=== PATIENT | male | born 1945 | race Caucasian/White ===

== ENCOUNTER 2016-12-18 08:36 | Emergency (ER) | payer OTHER ==
--- NOTE | 2016-12-18 08:52 | EDPHY ---
H & P Time Seen by Provider: 12/18/16 08:48 HPI/ROS: CHIEF COMPLAINT: Joint pain HISTORY OF PRESENT ILLNESS: This patient is a 71-year-old male on oral chemotherapy and Lupron injections for stage IV prostate cancer who presents to the Emergency Department complaining of joint pain and swelling to both feet and his right hand beginning one week prior to arrival and gradually worsening over time. His pain first presented to the toes of both feet and has since spread to the dorsum of his feet and both ankles. Most recently, he has developed pain and swelling over the metacarpals of his right hand. His pain has not been alleviated with use of Ibuprofen or Tylenol. He denies fever, chills, malaise, or additional complaints. He does have a remote history of gout and reports that today's pain and swelling is more severe than his prior episode. He takes one Lupron injection every six months and just had his most recent injection two weeks prior to arrival. No recent medication changes. REVIEW OF SYSTEMS: Constitutional: No fever, no chills Eyes: No visual changes ENT: No sore throat Respiratory: No cough, no shortness of breath Cardiac: No chest pain Gastrointestinal: No nausea, no vomiting, no abdominal pain Genitourinary: No hematuria, no dysuria Musculoskeletal: As in HPI Skin: No rash Neurological: No headache, no numbness, no weakness Psychiatric: No depression Past Medical/Surgical History: Prostate cancer, CAD with history of CABG, pedal edema, left greater than right Social History: Non-smoker. Family at bedside. Smoking Status: Never smoked Physical Exam: General Appearance: Alert, no distress Eyes: Pupils equal and round, no conjunctival pallor or injection ENT, Mouth: Mucous membranes moist Neck: Normal inspection Respiratory: Lungs are clear to auscultation Cardiovascular: Regular rate and rhythm Gastrointestinal: Abdomen is soft and non-tender Neurological: A&O, nonfocal Skin: Warm and dry, no rash Extremities: Bilateral pedal edema at level of ankles, left greater than right. Erythema over left first toe IP joint, no pain with ROM. Pain with ROM of both ankles. No calf tenderness. Psychiatric: Mood and affect normal Constitutional: Initial Vital Signs Temperature (C) 37.1 C 12/18/16 08:42 Heart Rate 82 12/18/16 08:42 Respiratory Rate 17 12/18/16 08:42 Blood Pressure 103/66 12/18/16 08:42 O2 Sat (%) 92 12/18/16 08:42 O2 Delivery Mode Room Air Allergies/Adverse Reactions: codeine [Codeine] Allergy (Severe, Verified 12/18/16 08:39) Unknown tazobactam sodium [From Zosyn] Allergy (Severe, Verified 12/18/16 08:39) piperacillin sodium [From Zosyn] Allergy (Unknown, Verified 12/18/16 08:39) pseudoephedrine HCl [From Sudafed] Allergy (Verified 12/18/16 08:39) ? triprolidine HCl [From Actifed] Allergy (Verified 12/18/16 08:39) ? Home Medications: Medication Instructions Recorded Furosemide [Lasix 80 MG (RX)] 120 mg PO DAILY 11/21/11 Valsartan/Hydrochlorothiazide 1.5 each PO DAILY 11/21/11 [Diovan Hct 160-25 mg Tablet] Carvedilol 12/18/16 Clindamycin HCl [Clindamycin] 300 mg PO TID #30 cap 12/18/16 LEVETIRACETAM 12/18/16 Metolazone 12/18/16 Spironolactone 12/18/16 Xtandi 12/18/16 Medical Decision Making - Diagnostics Imaging Results: Imaging Impressions Ankle X-Ray 12/18/16 09:17 Impression: No evidence for acute osseous abnormality. Chronic findings, as above. Ankle X-Ray 12/18/16 09:18 Impression: No evidence for acute osseous abnormality. Mild soft tissue swelling left ankle. Chronic findings, as above. Wrist X-Ray 12/18/16 09:18 Impression: No evidence for acute osseous abnormality. ED Course/Re-evaluation: 71-year-old male with stage IV prostate cancer and remote history of gout presents with complaint of worsening joint pain localized to his toes bilaterally, ankles bilaterally, and dorsal aspect of right hand. He denies subjective fever and is afebrile at time of presentation. On exam, there is erythema and swelling to the IP joint of the first toe of the left foot but no pain with ROM. Ankles and additional joints to both feet are not erythematous or swollen. He has bilateral pedal edema but states that this is at baseline for him. His right hand is normal in appearance. Will proceed with labs and x- rays of both feet and right hand. The patient declines arthrocentesis at this time. Doubt DVT, given no calf sx. Query metastatic dx, given bone scan from 06/17. Last DEXA scan in 06/2016 reviewed; this did show increased activity around ankles and MTP joints. The patient is scheduled for his next DEXA scan on of this week. X-rays reviewed by me are normal. Labs reviewed. Patient is anemic at baseline. WBC is slightly elevated at 10.26. Unclear etiology of sx, gout vs infection vs metastatic disease. Given pt declines arthrocentesis, I will not be able to dx etiology. Pt understands and accepts risk. I discussed imaging and lab results with the patient. He declines additional workup at this time. His family at bedside are willing to care for him at home; he declines hospital admission. He will be started on a course of Clindamycin for possible infection. He agrees to proceed with the DEXA scan and follow-up this week with his regular physician for workup as an outpatient. He will be given customary return precautions and discharged home in good condition. Differential Diagnosis: includes though not limited to gout, infection, tumor, fx, sprain - Data Points Laboratory Results: Laboratory Results 12/18/16 09:50 12/18/16 09:50 WBC 10.26 10^3/uL H 10^3/uL (3.80-9.50) RBC 3.68 10^6/uL L 10^6/uL (4.40-6.38) Hgb 11.0 g/dL L g/dL (13.7-17.5) Hct 32.2 % L % (40.0-51.0) MCV 87.5 fL fL (81.5-99.8) MCH 29.9 pg pg (27.9-34.1) MCHC 34.2 g/dL g/dL (32.4-36.7) RDW 12.7 % % (11.5-15.2) Plt Count 192 10^3/uL 10^3/uL (150-400) MPV 10.9 fL fL (8.7-11.7) Neut % (Auto) 85.1 % H % (39.3-74.2) Lymph % (Auto) 8.1 % L % (15.0-45.0) [place] % (Auto) 5.8 % % (4.5-13.0) Eos % (Auto) 0.0 % L % (0.6-7.6) Baso % (Auto) 0.1 % L % (0.3-1.7) Nucleat RBC Rel Count 0.0 % % (0.0-0.2) Absolute Neuts (auto) 8.73 10^3/uL H 10^3/uL (1.70-6.50) Absolute Lymphs (auto) 0.83 10^3/uL L 10^3/uL (1.00-3.00) Absolute Monos (auto) 0.60 10^3/uL 10^3/uL (0.30-0.80) Absolute Eos (auto) 0.00 10^3/uL L 10^3/uL (0.03-0.40) Absolute Basos (auto) 0.01 10^3/uL L 10^3/uL (0.02-0.10) Absolute Nucleated RBC 0.00 10^3/uL 10^3/uL (0-0.01) Immature Gran % 0.9 % % (0.0-1.1) Immature Gran # 0.09 10^3/uL 10^3/uL (0.00-0.10) Departure - Departure Disposition: Home, Routine, Self-Care Clinical Impression: Joint pain Qualifiers: Joint pain location: foot Laterality: bilateral Qualified Code(s): M79.671 - Pain in right foot Condition: Good Instructions: Arthralgia (ED), Swollen Joint (ED) Additional Instructions: 1. Follow-up with your regular provider as we discussed as soon as possible this week. Keep your appointment for your next DEXA scan. 2. Take 600mg Ibuprofen every 6 hours as needed for pain and swelling. 3. Take the full course of Clindamycin as prescribed. 4. Return to the Emergency Department for increased pain or swelling, fever or chills, or for other serious concerns. Referrals: Justus Iqbal MD [Primary Care Provider] - As per Instructions Prescriptions: Clindamycin HCl [Clindamycin] 300 mg PO TID #30 cap Report Scribed for: Casandra Sheets Report Scribed by: Niurka Dean Date of Report: 12/18/16 Time of Report: 08:50 Physician Review and Approval Statement: 12/18/16 08:50 Portions of this note were transcribed by a senior medical billing specialist. I personally performed a history, physical exam, medical decision making, and confirmed accuracy of information the transcribed note.
[2016-12-18 10:00] LABS: % IMMATURE GRANULYOCYTES 0.9 % (0.0-1.1); ABSOLUTE IMMATURE GRANULOCYTES 0.09 10^3/uL (0.00-0.10); ADD DIFF? NO; ADD MORPH? NO; ADD SCAN? NO; ATYPICAL LYMPHOCYTE FLAG 0 (0-99); FRAGMENT RBC FLAG 0 (0-99); HEMATOCRIT 32.2 % (40.0-51.0); LEFT SHIFT FLG 0 (0-99); LIPEMIA HEMOLYSIS FLAG 90 (0-99); MEAN CELL HEMOGLOBIN 29.9 pg (27.9-34.1); MEAN CELL HEMOGLOBIN CONCENTR. 34.2 g/dL (32.4-36.7); MEAN CELL VOLUME 87.5 fL (81.5-99.8); MEAN PLATELET VOLUME 10.9 fL (8.7-11.7); PLATELET CLUMPS FLAG 10 (0-99); PLATELET COUNT 192 10^3/uL (150-400); RED BLOOD CELL COUNT 3.68 10^6/uL (4.40-6.38); RED CELL DISTRIBUTION WIDTH 12.7 % (11.5-15.2)
[2016-12-18 11:13] VITALS: BP 134/67; PULSE 92; RESP 18; TEMP 98.4; O2SAT 94
== END 2016-12-18 11:13 | disposition home or self-care (01) ==
DX: M79.671 Pain in right foot (principal); I25.810 Atherosclerosis of coronary artery bypass graft(s) without angina pectoris; Z85.3 Personal history of malignant neoplasm of breast

== ENCOUNTER → 2016-12-22 | Outpatient (CLI) | payer OTHER | LOC: FIMAGING 13:24 | PROVIDERS: ATTEND Internal Medicine Hematology & Oncology | DX: Z13.820 Encounter for screening for osteoporosis (principal) ==

== ENCOUNTER 2016-12-25 09:38 | Emergency (ER) | payer OTHER ==
[2016-12-25 09:47] VITALS: BP 128/88; PULSE 71; RESP 18; TEMP 97.7; O2SAT 95
--- NOTE | 2016-12-25 10:07 | EDPHY ---
H & P Stated Complaint: rash to back? allergic reaction to clindamycin Time Seen by Provider: 12/25/16 09:51 HPI/ROS: Chief Complaint: Skin rash HPI: 71-year-old male was seen a week ago with bilateral joint pain and diagnosed with once but a possible early infection. Patient was started on clindamycin for this. Three days later he started developing a rash on his back. It has since spread to his entire back and to his front. It was initially patchy but is now more confluent per his spouse. He has been taking calamine lotion and topical Benadryl ointment without relief. He did take an oral Benadryl with a little bit of relief yesterday. No fevers or chills. He states that his joint pain has since completely resolved. No chest pain shortness of breath. No nausea or vomiting. He has since discontinued clindamycin. ROS: 10 point Review of Systems is negative except as noted in the HPI. PMH: Stage IV prostate cancer Social History: No smoking, no alcohol, no recreational drug use Family History: non-contributory Physical Exam: Gen: Awake, Alert, No Distress HEENT: Nose: no rhinorrhea Eyes: PERRLA, EOMI Mouth: Moist mucosa Neck: Supple, no JVD Chest: nontender, lungs clear to auscultation, diffuse maculopapular rash which is blanching, not warm to touch Heart: S1, S2 normal, no murmur Abd: Soft, non-tender, no guarding Back: Diffuse maculopapular rash which is blanching, not warm to touch, no midline tenderness Ext: no edema, non-tender Skin: Per chest and back exam Neuro: CN II-XII intact, Sensation grossly intact, Strength 5/5 in bilateral upper and lower extremities - Personal History Current Tetanus/Diphtheria Vaccine: Yes Tetanus Vaccine Date: 2007 - Medical/Surgical History Hx Asthma: No Hx Chronic Respiratory Disease: No Hx Diabetes: No Hx Cardiac Disease: Yes Hx Renal Disease: No Hx Cirrhosis: No Hx Alcoholism: No Hx HIV/AIDS: No Hx Splenectomy or Spleen Trauma: No Other PMH: prostate cancer/cardiac disease - Social History Smoking Status: Never smoked Constitutional: Initial Vital Signs Temperature (C) 36.5 C 12/25/16 09:44 Heart Rate 71 12/25/16 09:44 Respiratory Rate 18 12/25/16 09:44 Blood Pressure 128/88 H 12/25/16 09:44 O2 Sat (%) 95 12/25/16 09:44 O2 Delivery Mode Room Air Allergies/Adverse Reactions: codeine [Codeine] Allergy (Severe, Verified 12/18/16 08:39) Unknown tazobactam sodium [From Zosyn] Allergy (Severe, Verified 12/18/16 08:39) piperacillin sodium [From Zosyn] Allergy (Unknown, Verified 12/18/16 08:39) clindamycin Allergy (Verified 12/25/16 09:43) pseudoephedrine HCl [From Sudafed] Allergy (Verified 12/18/16 08:39) ? triprolidine HCl [From Actifed] Allergy (Verified 12/18/16 08:39) ? Home Medications: Medication Instructions Recorded Furosemide [Lasix 80 MG (RX)] 120 mg PO DAILY 11/21/11 Valsartan/Hydrochlorothiazide 1.5 each PO DAILY 11/21/11 [Diovan Hct 160-25 mg Tablet] Carvedilol 12/18/16 Clindamycin HCl [Clindamycin] 300 mg PO TID #30 cap 12/18/16 LEVETIRACETAM 12/18/16 Metolazone 12/18/16 Spironolactone 12/18/16 Xtandi 12/18/16 predniSONE 60 mg PO DAILY #9 tab 12/25/16 Medical Decision Making ED Course/Re-evaluation: 8-year-old male presenting with what appears to be a drug reaction secondary to being started on clindamycin a week ago. He has got a diffuse blanching maculopapular rash on his trunk. There is no vomits palms or soles. He is afebrile. It is not warm to the touch. There is no findings suggestive of infection. There is no blistering or skin sloughing suggesting Lacey-Eulalio type syndrome. He has had some relief with Benadryl. Plan will be to start him on a short course of prednisone, he will follow up with his physician in 2- 3 days for re-evaluation. He will return for any concerns or worsening of condition. Departure - Departure Disposition: Home, Routine, Self-Care Clinical Impression: Drug rash Condition: Good Instructions: Acute Rash (ED) Additional Instructions: Follow up with primary care physician in 2-3 days for re-evaluation. Return emergency department for increasing pain or redness, fevers, chills, chest pain, shortness of breath, lightheadedness, fainting, or any other concerns. Referrals: Justus Iqbal MD [Primary Care Provider] - As per Instructions Prescriptions: predniSONE 60 mg PO DAILY #9 tab
== END 2016-12-25 10:14 | disposition home or self-care (01) ==
DX: L27.0 Generalized skin eruption due to drugs and medicaments taken internally (principal); T36.8X5A Adverse effect of other systemic antibiotics, initial encounter; Z85.46 Personal history of malignant neoplasm of prostate

== ENCOUNTER 2017-02-28 15:31 | Inpatient (IN) | payer OTHER ==
[2017-02-28] MEDS ORDERED: NS 1,000 ML IV ONE (15:41)
--- NOTE | 2017-02-28 16:04 | CPEKG ---
Heart Rate: 113 RR Interval: 531 QRSD Interval: 118 QT Interval: 340 QTC Interval: 467 QRS [place]: 6 T Wave [place]: 160 EKG Severity - ABNORMAL ECG - EKG Impression: ATRIAL FIBRILLATION EKG Impression: NONSPECIFIC INTRAVENTRICULAR CONDUCTION DELAY EKG Impression: LOW VOLTAGE IN FRONTAL LEADS EKG Impression: MINIMAL ST DEPRESSION, ANTEROLATERAL LEADS Electronically Signed By: Casandra Sheets 28-Feb-2017 18:08:26
--- NOTE | 2017-02-28 16:10 | EDPHY ---
H & P Stated Complaint: low HH and hypotnesion Time Seen by Provider: 02/28/17 15:40 HPI/ROS: CHIEF COMPLAINT: generalized weakness HISTORY OF PRESENT ILLNESS: This patient is a 71 year old male with history of prostate and lung cancer presenting at the request of his oncologist, Dr. Iqbal, for evaluation of severe anemia noted during routine lab work at his appointment today. His has noted that he has kept getting weaker for the last week and a half. He seems unsteady and dizzy if he attempts to stand. He needs to hold onto the wall to walk to the BR. He has been sleeping much more than usual, and has had decreased appetite. He drinks water and milk but has only eaten 1/4 of a peanut butter sandwich today. His has noted bruises on ribcage on the side he sleeps on. Yesterday, he had large blood clots coming from his nose. Unclear how long this lasted. He denies blood in his stool. He denies current pain or dizziness. No prior h/o severe anemia or GI hemorrhage. He is currently being treated for prostate cancer with oral medications. He was evaluated about 2 months ago for swelling and itching on his legs. He took prednisone for relief, but his at bedside states he has gone downhill since then with various symptoms adding on. HPI obtained primarily through at bedside. REVIEW OF SYSTEMS: A 10 point review of systems was performed and is negative with the exception of the elements mentioned in the history of present illness. - Personal History Current Tetanus/Diphtheria Vaccine: Yes Current Tetanus Diphtheria and Acellular Pertussis (TDAP): Yes Tetanus Vaccine Date: 2007 - Medical/Surgical History PMH: Prostate cancer, Cardiac disease, Quadruple bypass, Hemorrhagic stroke, Lung cancer, Right lung resection, Nephrectomy, Respiratory failure, Cancer treatments: oral chemotherapy, radiation, IV chemotherapy Hx Asthma: No Hx Chronic Respiratory Disease: Yes Hx Diabetes: No Hx Cardiac Disease: Yes Hx Renal Disease: Yes Hx Cirrhosis: No Hx Alcoholism: No Hx HIV/AIDS: No Hx Splenectomy or Spleen Trauma: No Other PMH: prostate cancer,cardiac disease, 4xbypass, hemorrhaic stroke, one kidney, lung cancer, lungreection right, respiratory failure, oral chemo, radiation, chemo - Social History Smoking Status: Never smoked Additional Social History: at bedside. . Lives in [place]. - Physical Exam Exam: General Appearance: Somnolent, pale, BP 79/59. Eyes: Pupils equal and round, conjunctival pallor ENT, Mouth: Mucous membranes moist Neck: Normal inspection Respiratory: Lungs are clear to auscultation anteriorly Cardiovascular: Irregularly irregular Gastrointestinal: Abdomen is soft and non-tender Rectal: yellowish stool in vault Neurological: somnolent, nonfocal exam Skin: Warm and dry, scattered excoriated rash Extremities: Nontender, bilateral pedal edema Psychiatric: flat affect Constitutional: Initial Vital Signs Temperature (C) 36.1 C 02/28/17 15:49 Heart Rate 113 H 02/28/17 15:49 Respiratory Rate 16 02/28/17 15:49 Blood Pressure 100/55 L 02/28/17 15:49 O2 Sat (%) 93 02/28/17 15:49 O2 Delivery Mode Nasal Cannula O2 (L/minute) 2 Allergies/Adverse Reactions: codeine [Codeine] Allergy (Severe, Verified 12/18/16 08:39) Unknown tazobactam sodium [From Zosyn] Allergy (Severe, Verified 12/18/16 08:39) piperacillin sodium [From Zosyn] Allergy (Unknown, Verified 12/18/16 08:39) clindamycin Allergy (Verified 12/25/16 09:43) pseudoephedrine HCl [From Sudafed] Allergy (Verified 12/18/16 08:39) ? triprolidine HCl [From Actifed] Allergy (Verified 12/18/16 08:39) ? Home Medications: Medication Instructions Recorded Acetaminophen [Tylenol 325mg (*)] 650 mg PO Q6 PRN 02/28/17 Carvedilol [Coreg (*)] 3.125 mg PO BIDMEAL 02/28/17 Enzalutamide [Xtandi] 160 mg PO DAILY AT 9PM 02/28/17 Furosemide [Lasix 40 MG (*)] 40 mg PO BID 02/28/17 Ibuprofen [Motrin (*)] 200 mg PO Q4-6PRN PRN 02/28/17 Levalbuterol Inhaler [Xopenex Hfa 45 mcg IH PRN PRN 02/28/17 Inhaler (*)] Metolazone [Zaroxolyn 5MG (*)] 2.5 mg PO DAILY06 02/28/17 Spironolactone [Aldactone 25 MG 25 mg PO BID 02/28/17 (*)] levETIRAcetam [Keppra 500 mg (*)] 500 mg PO BID 02/28/17 Medical Decision Making - Diagnostics EKG Interpretation: EKG interpreted by me reveals atrial fibrillation, ventricular rate 113, nonspecific intraventricular conduction delay, low voltage in frontal leads, minimal ST depression in anterolateral leads. Interpretation: atrial fibrillation. ED Course/Re-evaluation: This patient presents with severe anemia, hypotension and new onset atrial fibrillation. IV NS 500ml given. Because of hematocrit of 16, I decided that uncross matched blood would be the safest option for this patient, especially in light of his coronary artery disease and advanced age. 1 unit uncrossmatched blood given, then 1 further unit uncrossmatched blood given. Ordered crossmatched blood, but this was unavailable in time and the patient's systolic blood pressure remained in the 70s after the 1st unit packed red blood cells. After second unit PRBC, pt more alert and SBP 90. Possible GI source of hemorrhage, given occult blood stool positive (though stool is not frankly bloody). Doubt epistaxis as primary source of hemorrhage. No h/o coagulopathy. EKG reveals new onset atrial fibrillation with controlled rate. No evidence of ischemia. Most likely secondary to critical illness. He also has acute renal failure, most likely secondary to dehydration. Pt and informed of critical nature of his illness. 16:[address] consulted with [address] service. Dr. Satnos accept admission to the ICU for severe anemia and hypotension. This patient utilized 40 minutes of critical care time exclusive of unbundled procedures. Differential Diagnosis: Differential diagnosis includes though not limited to GI hemorrhage, epistaxis, coagulopathy, dehydration - Data Points Laboratory Results: Laboratory Results 02/28/17 16:00 02/28/17 16:00 02/28/17 02/28/17 16:00 16:00 Smear Review By Marc KRAUS MD Antibody Screen POSITIVE Medications Given: Pantoprazole Sodium 40 mg/ (Sodium Chloride) 100 mls @ 200 mls/hr IV BID NICK Stop: 08/27/17 20:59 Last Admin: 03/01/17 08:53 Dose: 100 mls Norepinephrine/Sodium Chloride (Norepinephrine 8 Mcg/Ml (Premix)) 500 mls @ 0 mls/hr IV CONT NICK; Titrate PRN Reason: Protocol Stop: 08/27/17 22:29 Last Admin: 03/01/17 13:29 Dose: 500 mls Sodium Bicarbonate 75 meq/ (Sodium Chloride) 1,150 mls @ 125 mls/hr IV CONT NICK Stop: 08/28/17 14:29 Last Admin: 03/01/17 14:55 Dose: 1,150 mls Levetiracetam (Keppra) 500 mg PO BID NICK Stop: 08/27/17 20:59 Last Admin: 03/01/17 08:53 Dose: 500 mg Sodium Chloride (Angelina) 1 spray EACHNARE Q4H PRN PRN Reason: Dry Nose Stop: 08/28/17 13:05 Last Admin: 03/01/17 13:28 Dose: 2 sprays Discontinued Medications Alprazolam (Xanax) 0.25 mg PO ONCE ONE Stop: 03/01/17 11:46 Last Admin: 03/01/17 12:51 Dose: Not Given Sodium Chloride (Ns) 1,000 mls @ 0 mls/hr IV EDNOW ONE; Wide Open PRN Reason: Protocol Stop: 02/28/17 15:42 Last Admin: 02/28/17 20:25 Dose: 1,000 mls Sodium Chloride (Ns) 500 mls @ 0 mls/hr IV EDNOW ONE; Wide Open PRN Reason: Protocol Stop: 02/28/17 16:44 Last Admin: 02/28/17 16:30 Dose: 500 mls Sodium Chloride (Ns) 1,000 mls @ 150 mls/hr IV CONT NICK Stop: 08/27/17 18:14 Last Admin: 03/01/17 13:29 Dose: 1,000 mls Famotidine/Sodium Chloride (Pepcid 20 Mg (Premix)) 50 mls @ 200 mls/hr IV ONCE ONE Stop: 02/28/17 19:29 Last Admin: 02/28/17 20:23 Dose: 50 mls Methylprednisolone Sodium Succinate (Solu-Medrol) 125 mg IVP ONCE ONE Stop: 02/28/17 18:39 Last Admin: 02/28/17 19:17 Dose: 125 mg Polyethylene Glycol/Electrolytes (Golytely) 4,000 ml PO ONCE ONE Stop: 03/01/17 18:01 Last Admin: 03/01/17 16:57 Dose: 4,000 ml Departure - Departure Disposition: [facility] Inpatient Acute Clinical Impression: Hypotension Qualifiers: Hypotension type: other hypotension type Qualified Code(s): I95.89 - Other hypotension Atrial fibrillation Qualifiers: Atrial fibrillation type: unspecified Qualified Code(s): I48.91 - Unspecified atrial fibrillation Anemia Qualifiers: Anemia type: other cause Other causes of anemia: acute posthemorrhagic Qualified Code(s): D62 - Acute posthemorrhagic anemia Acute renal failure Qualifiers: Acute renal failure type: unspecified Qualified Code(s): N17.9 - Acute kidney failure, unspecified Condition: Critical Report Scribed for: Casandra Sheets Report Scribed by: Gege Morgan Date of Report: 02/28/17 Time of Report: 16:13 Physician Review and Approval Statement: 02/28/17 16:13 Portions of this note were transcribed by a medical surgical tech. I personally performed a history, physical exam, medical decision making, and confirmed accuracy of information the transcribed note.
[2017-02-28 16:20] LABS: % IMMATURE GRANULYOCYTES 1.5 % (0.0-1.1); ABSOLUTE IMMATURE GRANULOCYTES 0.11 10^3/uL (0.00-0.10); ADD DIFF? NO; ADD MORPH? YES; ADD SCAN? NO; ATYPICAL LYMPHOCYTE FLAG 0 (0-99); FRAGMENT RBC FLAG 60 (0-99); LEFT SHIFT FLG 10 (0-99); LIPEMIA HEMOLYSIS FLAG 90 (0-99); MEAN CELL HEMOGLOBIN 28.4 pg (27.9-34.1); MEAN CELL HEMOGLOBIN CONCENTR. 35.5 g/dL (32.4-36.7); MEAN CELL VOLUME 79.8 fL (81.5-99.8); MEAN PLATELET VOLUME 11.5 fL (8.7-11.7); PLATELET CLUMPS FLAG 0 (0-99); PLATELET COUNT 276 10^3/uL (150-400); RED BLOOD CELL COUNT 2.08 10^6/uL (4.40-6.38); RED CELL DISTRIBUTION WIDTH 14.2 % (11.5-15.2)
[2017-02-28 16:26] LABS: HEMOGLOBIN 5.9 g/dL (13.7-17.5)
[2017-02-28 16:27] LABS: HEMATOCRIT 16.6 % (40.0-51.0)
[2017-02-28 16:40] LABS: ANION GAP 23 mEq/L (8-16); CALCIUM 8.9 mg/dL (8.5-10.4); CARBON DIOXIDE 12 mEq/l (22-31); CHLORIDE 93 mEq/L (97-110); CREATININE 2.9 mg/dL (0.7-1.3); GLOMERULAR FILTRATION RATE 22; GLUCOSE 131 mg/dL (70-100); POTASSIUM 3.5 mEq/L (3.5-5.2); SODIUM 128 mEq/L (134-144)
[2017-02-28] MEDS ORDERED: NS 500 ML IV ONE (16:43)
[2017-02-28 16:47] LABS: HYPOCHROMIA 2+; MICROCYTES 2+; POLYCHROMASIA 1+
[2017-02-28 16:48] LABS: ELLIPTOCYTES 1+; KERATOCYTES 1+; PLATELET ESTIMATE ADEQUATE (ADEQ)
[2017-02-28 16:55] LABS: APTT 41.7 SEC (23.0-38.0); INR 1.69 (0.83-1.16); PROTIME(PATIENT) 19.9 SEC (12.0-15.0)
[2017-02-28 17:31] LABS: BILIRUBIN-UNCONJUGATED 0.2 mg/dL (0.0-1.1)
[2017-02-28 17:37] LABS: ALANINE AMINOTRANSFERASE 49 IU/L (21-72); ALBUMIN 3.2 g/dL (3.5-5.0); ALKALINE PHOSPHATASE 198 IU/L (38-126); ASPARTATE AMINOTRANSFERASE 32 IU/L (17-59); BILIRUBIN,TOTAL 1.5 mg/dL (0.1-1.4); BILIRUBIN-CONJUGATED 1.3 mg/dL (0.0-0.5); TOTAL PROTEIN 5.8 g/dL (6.3-8.2)
[2017-02-28 17:58] LABS: TROPONIN I 0.285 ng/mL (0.000-0.034)
[2017-02-28] MEDS ORDERED: ACETAMINOPHEN 325 MG TAB PO PRN (18:10)
[2017-02-28] MEDS ORDERED: ONDANSETRON 4 MG/2 ML VIAL IVP PRN (18:10)
[2017-02-28] MEDS ORDERED: methylPREDNISolone SOD SUCC 125 MG/2 ML VIAL IVP ONE (18:38)
[2017-02-28] MEDS ORDERED: FAMOTIDINE 20 MG/2 ML SDV IVP ONE (19:07)
[2017-02-28] MEDS ORDERED: FAMOTIDINE 20 MG/NACL 50 ML IV ONE (19:15)
[2017-02-28] MEDS: NS 1,000 ML IV SCH (19:19)
[2017-02-28 19:29] LABS: HEMATOCRIT 24.6 % (40.0-51.0); HEMOGLOBIN 8.4 g/dL (13.7-17.5)
--- NOTE | 2017-02-28 19:33 | GHP ---
[f rep st] HISTORY AND PHYSICAL DATE OF ADMISSION: 02/28/2017 CHIEF COMPLAINT: Hypotension, anemia. HISTORY: The patient is a 71-year-old male with metastatic prostate cancer, sent to the emergency r oom by Dr. Iqbal for a low blood count found on laboratory studies. He has not been feeling well for quite some time, getting very weak and dizzy, and has not left his bedroom for 1-1/2 weeks. Ye sterday, he had a large amount of epistaxis with clots. He has never had any blood in his stool. I n the emergency room, he had a heme-positive yellow stool in his rectal vault. He complains of severe itching for months, to the point where he has extensive excoriation, skin raquel akdown on his arms and legs. He took 5 days of prednisone burst about 2 months ago. It did tempora rily help, but it has returned. His has noticed a new hard lump palpable in his left flank. S he has noticed him to be pale the last couple of days and short of breath for 1 week. There has bee n no fever. There has been no nausea, vomiting or diarrhea. He has had poor p.o. intake. There jenkins s been no confusion. He has had a little back and shoulder pain. It looked like his rib cage had s pontaneously bruised. PAST MEDICAL HISTORY: 1. Metastatic prostate cancer, on Xtandi. 2. Lung cancer, status post resection, without recurrence. 3. Hemorrhagic stroke, with subsequent seizure disorder. 4. Unilateral atrophied kidney. 5. COPD. 6. Obstructive sleep apnea, CPAP intolerant, on 2 L at night. 7. Coronary artery disease, status post CABG. MEDICATIONS: Please see computer record for full detailed list. ALLERGIES: Penicillin, clindamycin, and codeine. SOCIAL HISTORY: Distant smoker. No alcohol. He lives with his . REVIEW OF SYSTEMS: Complete review of systems obtained. Review of systems is negative regarding co nstitutional, HEENT, GI, pulmonary, cardiovascular, , hematology, skin, musculoskeletal, endocrine , psych, except for positives and negatives as in HPI. FAMILY HISTORY: Reviewed, noncontributory to current complaint. PHYSICAL EXAMINATION: GENERAL: Well-developed, well-nourished male, in no acute distress. VITAL S IGNS: Temperature 36.1, pulse 113, blood pressure 75/47, saturating 100% on 3 L. EYES: Normal con junctivae. Pupils react to light. ENT: Normal ears and nose. Hearing intact. Normal teeth. Jose pharynx moist. NECK: Trachea midline. No thyromegaly. CHEST: Normal respiratory effort. LUNGS: Clear to auscultation bilaterally. CARDIOVASCULAR: Regular rhythm. No murmur. 1+ lower extremi ty edema. ABDOMEN: Soft, nontender. No hepatosplenomegaly. SKIN: He does have a palpable, hard mass in his left flank. SKIN: Excoriations over both lower legs and arms. He is very pale. MUSCU LOSKELETAL: No cyanosis or clubbing. Strength is 5/5, upper and lower extremities. NEURO: Crania l nerves intact. Normal sensation to light touch. PSYCH: Alert and oriented x3. Normal mood and affect. Normal judgment. Normal memory. LABORATORY DATA: White count 7.1, hematocrit 16.6, hemoglobin 5.9, platelets 276. Sodium 128, pota ssium 3.5, chloride 93, bicarb 12. Anion gap is 23. BUN 160, creatinine 2.9, glucose 131, total bi li 1.5, conjugated bilirubin 1.3. Alkaline phosphatase 198. Stools: Heme positive, yellow stool. INR is 1.69. Troponin 0.285. EKG viewed by me is atrial fibrillation, interventricular conduction delay. Chest x-ray is negative. I spoke with Dr. Autumn Sheets, emergency room physician. She is admi tting to ICU and giving blood in the ER. ASSESSMENT/PLAN: 1. Hypovolemic shock secondary to severe anemia. Will continue with IV fluid and transfusions as n eeded until stabilized. 2. Anemia. There is no obvious source of bleed. He has a heme-positive stool but does not have a clinical GI bleed. Continue transfusions and following serial hematocrits. Will check a CT scan of the abdomen and pelvis to rule out retroperitoneal bleed. He may eventually need a GI evaluation f or endoscopy when he is stabilized. He did have a large epistaxis yesterday, which may have contrib uted. His anemia is microcytic, so I will send iron studies. 3. Acute renal failure. I suspect this is hypovolemic. Will check a renal ultrasound, a urinalysi s. Will hold his Lasix, metolazone, spironolactone, and Motrin. 4. Anticipate transfusion reaction. In the emergency room, he was given 2 units of an unmatched O- negative blood. After the second unit was transfused, I was notified by blood bank that there is de finitely a protein that he will react to. I will empirically give him steroids and a dose of IV Lexi u-Medrol x1. He will be watched closely for evidence of anaphylaxis or hemolysis. 5. Anion gap acidosis. I suspect this is due to lactic acidosis. Will follow serial lactates and check blood cultures. 6. Troponin elevation. I suspect this is strain due to hypotension and anemia. Will follow serial troponins and check an echo. 7. Metastatic prostate cancer. He has an enlarging mass in his left flank. This will be evaluated by CAT scan. 8. New onset atrial fibrillation. His rate is not that rapid and does not need significant rate co ntrol at this time. We will check an echo. 9. Seizure disorder, status post previous hemorrhagic stroke. Will continue his Keppra. 10. Coronary artery disease, status post coronary artery bypass grafting. Per medical records, he had a cardiac catheterization in 2011 that showed patent grafts. CODE STATUS: Full. ADMISSION STATUS: 1. Will admit to inpatient as he is critically ill. Anticipate greater than 2 midnights. 2. Critical care time spent is 1 hour. 3. DVT prophylaxis: He does have some edema in his lower extremities, and he is hypercoagulable gi haresh his metastatic malignancy, so I will check ultrasounds to rule out bilateral DVT. I would not g daniel Lovenox until bleeding is ruled out. If his ultrasounds are negative for DVT, would start SCDs. /[id number]/MODL
[2017-02-28 19:51] LABS: URIC ACID 14.5 mg/dL (3.5-8.5)
[2017-02-28] MEDS: PANTOPRAZOLE SODIUM 40 MG in NS 100 ML IV SCH (20:41)
[2017-02-28] MEDS: levETIRAcetam 500 MG TAB PO SCH (20:42)
[2017-02-28] MEDS ORDERED: FAMOTIDINE 20 MG/NACL 50 ML IV SCH (21:00)
[2017-02-28] MEDS: NOREPINEPHRINE/NS 500 ML IV SCH (22:34)
--- NOTE | 2017-02-28 22:39 | EDPHY ---
Inpatient Procedure Narrative: Procedure: Central line placement. Indication: Hypotension. Verbal informed consent was obtained, with the risks explained to include but not be limited to bleeding, infection, and collapsed lung. A timeout was observed and patients identity and correct procedure location confirmed. Full maximal sterile barrier technique was uses including cap, gown, sterile gloves, large sheet, hand washing and chlorhexidine prep. The area anesthetized with 1 % lidocaine. The right IJ was punctured with a 19 gauge finder needle, then a triple-lumen was placed using standard Seldinger technique. There were no complications. Blood return low pressure, dark blood. Patient tolerated procedure well. CXR results: in Rt Ventrical . X-ray was interpreted by myself. The procedure was performed by myself. Central line was backed out 5 cm by me and repeat x-ray performed. This was done under sterile conditions.
[2017-02-28 23:25] LABS: COLOR YELLOW; LEUKOCYTE ESTERASE,URINE NEGATIVE (NEGATIVE); NITRITE,URINE NEGATIVE (NEGATIVE)
[2017-03-01 00:54] LABS: HEMATOCRIT 23.7 % (40.0-51.0); HEMOGLOBIN 8.3 g/dL (13.7-17.5)
[2017-03-01 01:03] LABS: PLATELET COUNT 234 10^3/uL (150-400)
[2017-03-01 01:04] LABS: INR 1.88 (0.83-1.16); PROTIME(PATIENT) 21.7 SEC (12.0-15.0)
[2017-03-01 01:05] LABS: APTT 39.3 SEC (23.0-38.0); FIBRINOGEN 702 mg/dL (214-456)
[2017-03-01 05:53] LABS: ADD DIFF? YES; ADD MORPH? NO; ADD SCAN? NO; ATYPICAL LYMPHOCYTE FLAG 0 (0-99); FRAGMENT RBC FLAG 40 (0-99); HEMATOCRIT 25.3 % (40.0-51.0); HEMOGLOBIN 8.7 g/dL (13.7-17.5); LEFT SHIFT FLG 30 (0-99); LIPEMIA HEMOLYSIS FLAG 90 (0-99); MEAN CELL HEMOGLOBIN 28.2 pg (27.9-34.1); MEAN CELL HEMOGLOBIN CONCENTR. 34.4 g/dL (32.4-36.7); MEAN CELL VOLUME 82.1 fL (81.5-99.8); MEAN PLATELET VOLUME 10.9 fL (8.7-11.7); PLATELET CLUMPS FLAG 10 (0-99); PLATELET COUNT 303 10^3/uL (150-400); RED BLOOD CELL COUNT 3.08 10^6/uL (4.40-6.38); RED CELL DISTRIBUTION WIDTH 14.3 % (11.5-15.2)
[2017-03-01 05:59] LABS: PLATELET COUNT 303 10^3/uL (150-400)
[2017-03-01 06:03] LABS: INR 1.93 (0.83-1.16); PROTIME(PATIENT) 22.2 SEC (12.0-15.0)
[2017-03-01 06:04] LABS: APTT 40.2 SEC (23.0-38.0); FIBRINOGEN 689 mg/dL (214-456)
[2017-03-01 06:24] LABS: TROPONIN I 0.994 ng/mL (0.000-0.034)
[2017-03-01 06:25] LABS: ALANINE AMINOTRANSFERASE 49 IU/L (21-72); ALBUMIN 2.9 g/dL (3.5-5.0); ALKALINE PHOSPHATASE 188 IU/L (38-126); ANION GAP 22 mEq/L (8-16); ASPARTATE AMINOTRANSFERASE 38 IU/L (17-59); BILIRUBIN,TOTAL 1.5 mg/dL (0.1-1.4); BILIRUBIN-CONJUGATED 1.3 mg/dL (0.0-0.5); BILIRUBIN-UNCONJUGATED 0.2 mg/dL (0.0-1.1); CALCIUM 7.9 mg/dL (8.5-10.4); CARBON DIOXIDE 11 mEq/l (22-31); CHLORIDE 103 mEq/L (97-110); CREATININE 2.4 mg/dL (0.7-1.3); GLOMERULAR FILTRATION RATE 27; GLUCOSE 132 mg/dL (70-100); POTASSIUM 3.3 mEq/L (3.5-5.2); SODIUM 136 mEq/L (134-144); TOTAL PROTEIN 5.2 g/dL (6.3-8.2)
[2017-03-01 06:33] LABS: TOTAL IRON BINDING CAPACITY 274 ug/dL (260-490)
[2017-03-01 06:43] LABS: CORTISOL-AM 30.2 ug/dL (4.5-22.7)
[2017-03-01 06:44] LABS: LARGE PLATELETS PRESENT; PLATELET ESTIMATE ADEQUATE (ADEQ)
[2017-03-01 06:47] LABS: ELLIPTOCYTES 1+; GIANT PLATELETS PRESENT; MICROCYTES 1+; TOXIC GRANULATION PRESENT; TOXIC VACUOLIZATION PRESENT
[2017-03-01 06:59] LABS: % SATURATION 97 % (20-55); LACTATE DEHYDROGENASE 538 IU/L (313-618); MAGNESIUM 1.9 mg/dL (1.6-2.3)
[2017-03-01] MEDS: NOREPINEPHRINE/NS 500 ML IV SCH ×2 (07:20→13:29)
--- NOTE | 2017-03-01 08:48 | CPEKG ---
Heart Rate: 85 RR Interval: 706 P-R Interval: 205 QRSD Interval: 118 QT Interval: 396 QTC Interval: 471 P Frisco: 0 QRS Frisco: -33 T Wave Frisco: 164 EKG Severity - ABNORMAL ECG - EKG Impression: SINUS RHYTHM EKG Impression: NONSPECIFIC INTRAVENTRICULAR CONDUCTION DELAY EKG Impression: CONSIDER INFERIOR INFARCT EKG Impression: ANTERIOR INFARCT, AGE INDETERMINATE Electronically Signed By: Dilan Saxena 01-Mar-2017 11:50:19
[2017-03-01] MEDS: levETIRAcetam 500 MG TAB PO SCH ×2 (08:53→21:01)
[2017-03-01] MEDS: PANTOPRAZOLE SODIUM 40 MG in NS 100 ML IV SCH ×2 (08:53→21:01)
[2017-03-01] MEDS ORDERED: ALPRAZolam 0.25 MG TAB PO ONE (11:45)
--- NOTE | 2017-03-01 12:25 | ECHO ---
[id number] + + [phone] : : [place] [id number] : : [phone] + Adult Echocardiographic Report + ------+ :Name: BHARATHI PARKER Yannickmely Date: 03/01/2017 07:59 AM BP: 108/56 mmHg : : Hospital Admission Number: [id number] [facility] n: 247: :: 1945 Gender: Male Height: 66 in : :Age: 71 yrs Race: WH Weight: 178 lb : :Reason For Study: elev troponin : : BSA: 1.9 meters 2 : :History: cabg : + ------+ MMode/2D Measurements \T\ Calculations IVSd: 0.95 cm RVDd: 3.5 cm FS: 24.1 % MV Diam: 2.9 cm LVPWd: 0.87 cm LVIDd: 5.1 cm EDV(Teich): 122.2 ml LVIDs: 3.8 cm ESV(Teich): 63.9 ml EF(Teich): 47.7 % Ao root diam: LVOT diam: 2.0 cmLVLd ap4: 7.7 cm SV(MOD-sp4): 2.9 cm LVOT area: EDV(MOD-sp4): 50.0 ml LA dimension: 3.2 cm2 121.0 ml 4.5 cm LVLs ap4: 7.6 cm ESV(MOD-sp4): 71.0 ml EF(MOD-sp4): 41.3 % Normal Measurement Values: + + :LVIDd (3.5-5.7cm) IVSd (0.6-1.1cm) LVPWd (0.6-1.1cm) Aortic Root (2.0-3.7cm)Left Atrium (1.5-4.0cm): :LV Vol(d) (76-115ml) LV Vol(s) (29-48ml) Ejec Fraction (50-65%)PV Russ (0.6- 1.2m/s) TV Russ (0.4-1.0m/s) : :MV E Russ (0.8-1.0m/s)MV A Russ (0.3-1.0m/s)LVOT Russ (0.7-1.2m/s) Asc Ao Russ ( 0.9-1.8m/s) : + + Doppler Measurements \T\ Calculations MV E max russ: MV V2 max: Ao V2 max: LV V1 mean P.3 cm/sec 75.1 cm/sec 103.8 cm/sec 1.1 mmHg MV A max russ: MV max P.3 mmHg Ao max PG: LV V1 mean: 52.1 cm/sec MV V2 mean: 4.3 mmHg 47.8 cm/sec MV E/A: 2.1 39.3 cm/sec LV V1 VTI: MV dec time: MV mean P.0 cm 0.17 sec 0.73 mmHg MV V2 VTI: 20.8 cm MV area (1 diam): 6.7 cm2 MVA(VTI): 2.6 cm2 MV Flow area(1diam): 6.7 cm2 MR max russ: MR(RF 1 diam): SV(MV 1 diam): PA V2 max: 384.8 cm/sec 31.3 % 139.9 ml 96.4 cm/sec MR max PG: SI(MV 1 diam): PA max P.2 mmHg 73.5 ml/m2 3.7 mmHg SV(LVOT): 53.9 ml PI end-d russ: TR max russ: RF(MV,LVOT) 123.5 cm/sec 251.0 cm/sec (1diam): 0.62 TR max P.2 mmHg RAP systole: 5.0 mmHg RVSP(TR): 30.2 mmHg Left Ventricle The left ventricle is normal in size. There is borderline concentric left ventricular hypertrophy. Ejection Fraction = 40-45%. Basal inferolateral, inferoseptal and inferior valerio are hypokinetic. Right Ventricle The right ventricle is normal in size and function. Atria The left atrium is moderately dilated. The Left Atrial Volume is 44 ml/m2. Right atrial size is normal. Mitral Valve The mitral valve leaflets appear thickened, but open well. There is moderate mitral regurgitation. Tricuspid Valve The tricuspid valve is normal in structure and function. There is mild to moderate tricuspid regurgitation. Right ventricular systolic pressure is 30mmHg. Aortic Valve The aortic valve is trileaflet. There is no aortic stenosis. Trace to mild aortic regurgitation. Pulmonic Valve The pulmonic valve is not well visualized. Great Vessels The aortic root is normal size. Pericardium/Pleural There is no pericardial effusion. Conclusion A two-dimensional transthoracic echocardiogram with M-mode and Doppler was performed. (1) Left ventricular systolic ejection fraction was mildly to moderately reduced (40-45%) - inferolateral and inferoseptal hypokinesis/akinesis (2) Borderline left ventricular hypertrophy (3) Diastolic function was not assessed (4) Normal right ventricular size and function (5) Moderate left atrial dilation with normal right atrial dimensions (6) Moderate mitral regurgitation (7) Trileaflet aortic valve with trace/mild regurgitation and no appreciable sclerosis or stenosis (8) Mild to moderate tricuspid regurgitation - RVSP was estimated to be 30 mm Hg (9) Poor visualization of the pulmonic valve (10) In comparison to prior echocardiogram (from 11-21-11), wall motion abnormalities and reduction in LVEF are new. Prior echo with no mention of any valve pathology (mitral and tricupsid regurgitation is noted in this study as well). Final Reading Physician: Roman Palma signed on 03/01/2017 12:23 PM Ordering Physician: Nakia Santos Performed By: Santa Alicia
--- NOTE | 2017-03-01 12:42 | GCON ---
[f rep st] CONSULTATION ROTARY OPERATOR CONSULTATION REASON FOR ADMISSION: Fatigue, anemia. HISTORY PRESENT ILLNESS: The patient is a 71-year-old white male with an extensive past medical his tory, including lung cancer status post resection, metastatic prostate cancer, hemorrhagic stroke, s eizure disorder, chronic obstructive pulmonary disease, obstructive sleep apnea (for which he is not on CPAP), and coronary artery disease with history of coronary bypass graft. He presents with sign ificant anemia. He was sent to the emergency room by Dr. Justus Iqbal. There was no history of m elenic-type stools; however, he did have epistaxis. In discussion with the patient, he states with the exception of feeling uncomfortable and weak, he has no current complaints. There is no chest pa in (pleuritic-type chest pain or angina equivalent). No fever or night sweats. No nausea, vomiting , or diarrhea. No cough or production of sputum. He does complain of some itching. PAST MEDICAL HISTORY: Significant for metastatic prostate cancer, hemorrhagic stroke, seizure disor calixto, chronic obstructive pulmonary disease, coronary artery disease, obstructive sleep apnea, and evangelina ng cancer. PAST SURGICAL HISTORY: Coronary bypass graft and lung cancer resection. ALLERGIES: Penicillin, clindamycin, and codeine. SOCIAL HISTORY: Previous heavy tobacco use; none recently. No significant alcohol use. He lives w ith his . He has excellent family support. PHYSICAL EXAMINATION: VITAL SIGNS: Blood pressure is 107/57, pulse 88, respirations 20, temperatur e 35.7, oxygen saturation 97% on 2 L. GENERAL: A moderately overweight but extremely pleasant 71-y ear-old white male who is sitting up in chair but feels generally uncomfortable. HEENT: Eyes are P ERRLA, EOMI. Throat shows no erythema or tonsillar hypertrophy. NECK: Supple. No cervical adenop athy. HEART: Regular rate and rhythm without murmurs, rubs, or gallops. LUNGS: Diminished breath sounds but no wheeze. ABDOMEN: Soft, nontender. Bowel sounds are present in all 4 quadrants. EX TREMITIES: No clubbing, cyanosis, or edema. LABORATORIES: White count 10, hemoglobin 8.7, hematocrit 25, platelet count 234. Sodium 136, potas sium 3.3, chloride 103, CO2 is 22, BUN 145, creatinine 2.4, glucose 132. Troponins are mildly posit daniel. TSH is low at 0.11. Stool for occult blood is positive. Chest x-ray: There is a right internal jugular triple-lumen in place. There is some pulmonary edd a with a right pleural effusion and stable rib fractures. IMPRESSION: 1. Hypovolemic shock. This is mostly resolved. 2. Significant anemia with heme-positive stools. 3. Acute renal failure secondary to hypovolemia. BUN is also likely from GI bleed. 4. Transfusion reaction. 5. Metastatic prostate cancer. 6. New onset atrial fibrillation. 7. History of seizure disorder. 8. History of coronary artery disease. RECOMMENDATIONS: 1. Agree with admission to intensive care unit. 2. Transfuse appropriately. 3. GI to see. 4. DVT and PE prophylaxis; holding anticoagulation for now. 5. Stress ulcer prophylaxis. 6. Adequate pain control. /[id number]/MODL
--- NOTE | 2017-03-01 12:48 | WOCRNPDOC ---
WOCRCaty Advanced Assessment Note - Skin Integrity Problem, Advanced Assess Sacrum Blister Dressing Type: Allevyn Life Wound Bed Color: Ridge Site Measurement - Head-to-Toe Length X Width X Depth (cm): 0.2x0.1x0.1 Skin Integrity Problem Comment: Calloused area that is opening due to maceration. No pressure involvement. May leave RAMAKRISHNA and apply calazime prn. Wound care will sign off. Katarina RANDLE in room for assessment.
[2017-03-01] MEDS ORDERED: SODIUM CL NASAL 45 ML BTL EACHNARE PRN (13:06)
[2017-03-01] MEDS: NS 1,000 ML IV SCH (13:29)
[2017-03-01 14:41] LABS: URIC ACID 12.6 mg/dL (3.5-8.5)
--- NOTE | 2017-03-01 14:42 | GCON ---
[f rep st] CONSULTATION MEDICAL ONCOLOGY CONSULTATION REASON FOR CONSULTATION: Ongoing management of metastatic prostate cancer. RECOMMENDATIONS: 1. I would continue the patient's Xtandi. 2. Agree with treatment of his multiple other underlying medical problems, including acute renal fa ilure, acidosis and exacerbation of COPD, as you are doing. ASSESSMENT: This 71-year-old white male is now hospitalized with acute renal failure and severe ane yennifer. He was found to have a hemoglobin of 5.7 in the office, and a BUN of 163, with a creatinine of 2.9. The patient had been taking nonsteroidal's at home and has essentially one functioning kidney , therefore, increasing his risk of renal failure associated with nonsteroidal anti inflammatory med ications. With intensive treatment in the hospital, his creatinine has improved and is now down to 2.4. I suspect his severe anemia is related to a relative erythropoietin deficiency, based on his renal dysfunction. He does have underlying mild anemia with his hemoglobin being 11.0 on the December. Hopefully, with correction of his renal function, his hemoglobin will ret urn to baseline. The patient has no evidence of DIC. His PSA has been under fairly good control, with his PSA from t he January being 0.99. Previously, 6 weeks before, it had been 0.92. I will look into whether any dose reduction is required because of his renal dysfunction with Xtandi . HISTORY OF PRESENT ILLNESS: Please see assessment. PAST MEDICAL HISTORY: Remarkable for metastatic prostate cancer, which was apparently discovered in April 2014. At that time, he was found to have metastatic disease at presentation. He initially responded to Lupron and Casodex, but was changed to Xtandi when his PSA began to rise. He has been on Xtandi since September of 2015. His past medical history is also remarkable for remote history of l joan cancer, status post resection without known recurrence. He has also had hemorrhagic stroke, and seizure disorder, coronary artery disease, and obstructive sleep apnea. REVIEW OF SYSTEMS: The patient is not able to provide me a complete review of systems, but he does complain of a stuffy nose, and shortness of breath. PHYSICAL EXAMINATION: GENERAL: Reveals a pale male, sitting up in a chair. LUNGS: Reveal no rale s today. CARDIAC: Shows a regular rhythm. SKIN: Shows pallor. LOWER EXTREMITIES: Show 2+ edema . LABORATORY EXAM: Today, shows a white blood cell count of 10.09, with a hemoglobin of 8.7, and a pl atelet count of 303,000. His chemistries show that his creatinine is down to 2.4, with a BUN of 145 . His ferritin is elevated at 470. This could be an acute phase reactant however. His transferrin saturation is high at 97%. Thank you very much for allowing us to participate in this gentleman's care. We will continue to evangelista ruff during his hospitalization and beyond, as far as management of his prostate cancer is concerned . /[id number]/MODL
[2017-03-01 14:54] LABS: PTH INTACT NO MINERALS 580.8 pg/ml (10.8-79.4)
[2017-03-01] MEDS: SODIUM BICARBONATE 75 MEQ in 1/2 NS 1,000 ML IV SCH ×3 (14:55→21:05)
[2017-03-01 16:19] LABS: HEPATITIS B SURFACE ANTIBODY NEGATIVE (NEGATIVE)
[2017-03-01 17:00] LABS: EOSMR EOSINOPHILS NO EOS SEEN (NO EOS SEEN); EOSMR EPITHELIAL CELLS MANY EPITH CELLS; EOSMR PMNS FEW PMN CELLS; EOSMR RBCS MANY RBCS
--- NOTE | 2017-03-01 17:37 | HOSPPROG ---
Hospitalist Progress Note Assessment/Plan: assessment: 71-year-old male presents with acute fatigue and pruritus in the setting of hypovolemic shock and acute anemia and acute kidney injury on chronic kidney disease Plan: 1. anemia. Acute, unclear etiology, fecal occult blood test positive, but iron studies suggest lack of iron deficient component - suspect this may be secondary to several weeks of worsening renal dysfunction -discussed with Dr. Quintanilla, prepare patient for upper endoscopy and colonoscopy tomorrow a.m., continue IV PPI 3 at time -status post 2 units of packed red blood cells, monitor hemoglobin level 2. acute kidney injury on chronic kidney disease stage 3. patient with functional solitary kidney, atrophic on 1 side, ultrasound demonstrating no hydronephrosis, suspect he may have sustained renal injury in the setting of regular nonsteroidal anti-inflammatory medication use as well as ongoing use of diuretic and spironolactone - discussed with Dr. Stevenson, renal consultation appreciated, place patient on sodium bicarbonate -avoid NSAIDs - maintain systolic blood pressure greater than 90 3. hypovolemic shock. Likely secondary to ongoing diuretic use, possible anemia contributing - continue on Levophed, wean to goal of systolic blood pressure greater than 90 -afternoon lactic acid level to ensure patient is not hypo perfusing 4. hypokalemia. Hold on replacing given acute kidney injury 5. metabolic acidosis. Anion gap, most likely secondary to uremia, giving sodium bicarbonate, monitoring chemistry 6. Uremia. Most likely contributing to patient's pruritus symptoms, secondary to his acute kidney injury, continue to monitor 7. Chronic systolic and diastolic congestive heart failure. No evidence of acute exacerbation as yet, monitor volume status closely comma chest x-ray demonstrating elevated right hemidiaphragm without pulmonary congestion -hold spironolactone and Lasix given hypotension 8. lipoma. Left flank, present on abdominal imaging, although it has been rapidly growing, suspect this is not related to the above 9. Prostate cancer. Chronic, patient with sclerotic bone lesions resulting in pain -discussed with Dr. Yen, patient will be continued on his oral chemotherapy agent - continue to work on pain management, work with physical and occupational therapy 10. atrial fibrillation. New onset, no rapid ventricular response, most likely provoked in the setting of above and underlying coronary artery disease -monitor for worsening on telemetry given the patient's carvedilol is currently being held secondary to hypotension -hold on systemic anticoagulation given it is unclear whether the patient is having internal bleeding 11. Coronary artery disease. Chronic, status post CABG 20-30 years ago, holding patient's beta-marleen, patient not on aspirin for unclear reasons Diet. Regular, clears for dinner, NPO after midnight Prophylaxis. High risk patient, hold pharm given possibility of bleeding, SCDs Code. full Disposition. Anticipated discharge uncertain, remains critically ill. 45 minutes of critical care time spent with patient, at bedside, with team during rounds, addressing the issues outlined above. Subjective: Patient reports ongoing discomfort and requires repositioning frequently Objective: Vital Signs Temp Pulse Resp BP Pulse Ox 35 C L 80 18 93/40 L 98 03/01/17 17:00 03/01/17 17:00 03/01/17 17:00 03/01/17 17:00 03/01/17 17:00 Laboratory Results 03/01/17 05:45 03/01/17 05:45 02/28/17 03/01/17 03/02/17 05:59 05:59 05:59 Intake Total 4065 120 Output Total 1285 Balance 2780 120 PT 22.2 SEC (12.0-15.0) H 03/01/17 05:45 INR 1.93 (0.83-1.16) H 03/01/17 05:45 - Physical Exam Constitutional: chronically ill appearing, uncomfortable, No no apparent distress ( mild distress), No not in pain Ears, Nose, Mouth, Throat: moist mucous membranes, hearing normal, ears appear normal, no oral mucosal ulcers Cardiovascular: systolic murmur ( 106 at the sternum and apex), irregularly irregular, edema ( trace bilateral lower extremity), No tachycardia Respiratory: no respiratory distress, no rales or rhonchi, clear to auscultation Gastrointestinal: normoactive bowel sounds, soft, non-tender abdomen, no palpable masses, No distension Genitourinary: stack in urethra ( clear) Skin: warm Neurologic: AAOx3, sensation intact bilaterally, No weakness ( motor strength 5/ 5 bilateral lower extremity), No facial droop Psychiatric: interacting appropriately, not encephalopathic, thought process linear, anxious, other ( concentration 7/7) ICD10 Worksheet Patient Problems: Problems Problem Status Onset Anemia Acute Atrial fibrillation Acute Hypotension Acute Aspiration pneumonia Active Coronary artery bypass grafting Active MRSA - Methicillin resistant Staphylococcus aureus infection Active Non-small cell lung cancer Active Respiratory failure Active
[2017-03-01] MEDS ORDERED: GOLYTELY 4000 ML BTL PO ONE (18:00)
--- NOTE | 2017-03-01 20:37 | GCON ---
[f rep st] CONSULTATION REASON FOR CONSULTATION: We were asked to see the patient in consultation because of new wall motio n abnormalities on the patient's echocardiogram. They were new and unchanged from an echocardiogram obtained in 2012, as well as a presence of atrial fibrillation and a history of coronary bypass gra fting. HISTORY OF PRESENT ILLNESS: The patient is a 71-year-old man with a history of metastatic prostate cancer, who was sent to the emergency room by Dr. Iqbal for low blood count and anemia. He has n ot been feeling well for some time with weakness and fatigue as well as shortness of breath. Yesterday, he had a large a large amount of epistaxis with clots. He has not noted bright red blood per rectum or melena. Specifically, he was found to have a heme-positive yellow stool in his recta l vault in the Emergency Department. At any rate, his noted that he was pale for several days and short of breath for at least a week prior to the evaluation in the emergency department. He has not been particularly confused. He has had some back and shoulder pain. He has not had chest pain , angina, pressure or tightness. 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 He does have a history of hypertension. ALLERGIES: He is known to have allergy to penicillin, clindamycin and codeine. SOCIAL HISTORY: Pertinent for the fact that he is a remote smoker. He does not abuse alcohol or il licit drugs. He lives with his and has not worked in his job for over 20 years following the h emorrhagic stroke. He has been in essence disabled since hemorrhagic stroke and bypass surgery, whi ch occurred approximately 6 months after the hemorrhagic stroke occurred. FAMILY HISTORY: Is noncontributory to his current complaint, as he already has known coronary disea se severe enough to require bypass at a young age. At the time of my evaluation, the patient denies chest discomfort, pressure or tightness. He has no t had clinical symptoms other than fatigue and shortness of breath. MEDICATIONS: As listed on the MAR and include; carvedilol 3.125 p.o. twice daily, Lasix 40 mg p.o. twice daily, metolazone 2.5 mg p.o. daily, spironolactone 25 mg daily, Keppra 500 mg p.o. twice melissa y, and 160 mg of Xtandi daily as mentioned for the prostate cancer, and acetaminophen 650 p.o. q.6 a s needed for pain. PHYSICAL EXAMINATION: VITAL SIGNS: Today, his vital signs reveal a blood pressure of 93/40, his me an arterial pressure is 57. His heart rate is 80 and irregularly irregular. Respirations are 18 an d unlabored. Oxygen saturations 98%. His temperature is 35 degrees Celsius. GENERAL: He is somew hat slow to respond to my questions but is awake, alert and oriented to his person and place. NECK: Reveals no JVD. HEART: Reveals normal S1 and S2 with an irregularly irregular rhythm. His echoc ardiogram reveals a posterior lateral wall motion abnormality with reduced ejection fraction measure d at 40% to 45%. The basal inferolateral posterior wall inferior septum and inferior wall are all h ypokinetic. There is also moderate mitral regurgitation. He does not have an audible murmur on my exam, or gallop sound. I do not appreciate a rub. His heart as I mentioned is irregularly irregula r. LUNGS: Clear to auscultation bilaterally without wheezes, rales or rhonchi. He has decreased b reath sounds on the right posteriorly and a diminished right lung volume presumably from his old florin shasta. ABDOMEN: Obese with positive bowel sounds. Nondistended, nontender. EXTREMITIES: Warm, dr y, and well perfused without significant peripheral edema. He does not appear to be anxious at the time my examination, and his denies new neurological complaints or findings. He does admit to being somewhat weaker than normal. LABORATORY DATA: The patient's laboratory studies reveal an initial hemoglobin and hematocrit of 5. 9 and 16.6, which is now 8.7 and 25.3, white count of 10.09 with 9.28 segmented neutrophils. His co ag studies reveal a PT/INR of 22.2 and 1.93, an APTT of 40.2, fibrinogen 689 which is high, D-dimer is less than 0.27. Venous blood gas is 1.7. Chemistries revealed a sodium of 136, potassium low at 3.3, BUN and creatinine of 145 and 2.4 with an estimated GFR of 27, glucose 132, uric acid 12.6, ir on of 267 which is elevated, phosphorus 11.0 which is high, iron saturation 97, ferritin 470 upper l imit of normal 464, alkaline phosphatase 188, troponin 0.994. Total protein 5.2, albumin 2.9. TSH low at 0.110, PTH is 580.8, upper limits of normal 79.4. Cortisol am sample is 30.2. Urinalysis wa s negative. Stool occult blood was positive. NEELIMA screen is pending, and serologies for hepatitis B surface antigen antibody and hepatitis C antibody are negative. His EKG reveals atrial fibrillatio n with a controlled ventricular response. There are frequent and sometimes consecutive premature ve ntricular complexes on the telemetry recording. There is evidence of a probable inferior infarction with Q-waves in II, III, and aVF consistent with that diagnosis. There is also poor R-wave progres victor m and Q-waves in the anterior septal leads which may be consistent with prior anterior infarction as well. His echocardiogram is as previously described. IMPRESSION/PLAN: The patient has metastatic prostate cancer and severe anemia with a very high bloo d urea nitrogen out of proportion to his level of renal dysfunction. I think it is very likely that this may be related to absorb gastrointestinal blood. He does have an ischemic cardiomyopathy but does not appear to have an acute coronary syndrome on the basis of his clinical symptoms, and his EK G is also most consistent with an old injury as opposed to an acute cardiac process. Because of his significant anemia and likely that blood loss of some type is causing that, I would be very reticen t to consider an invasive procedure to evaluate his cardiac circulation in the absence of clinical a ngina or other indications for an evaluation. The patient is scheduled for endoscopy tomorrow. I d oubt that the patient's epistaxis would have been so severe that this would of resulted in an anemia to the level that he was found to have on presentation to the hospital. We will follow along with you and thank you for the consultation. Given the status and frailty of h is overall health, certainly identifying clinically silent ischemic cardiomyopathy would not be an i ndication for cardiac catheterization in my opinion, especially since placement of a stent to improv e his cardiac circulation would require aspirin and Plavix in combination for at least 45 days which may result in further bleeding. I will await the results of the endoscopy which is planned for won huffman and will follow with you. Thank you for the consultation. /[id number]/MODL
[2017-03-01] MEDS ORDERED: Enzalutamide [Xtandi] 40 MG PO SCH (21:00)
[2017-03-01] MEDS ORDERED: LEVALBUTEROL INHALER 200 PUFFS/15 GM MDI IH PRN (22:40)
--- NOTE | 2017-03-02 00:13 | GCON ---
[f rep st] CONSULTATION DATE OF CONSULTATION: 03/01/2017 REASON FOR CONSULTATION: Opinion regarding acute kidney injury in a patient with known chronic kidn ey disease. HISTORY OF PRESENT ILLNESS: The patient is a very pleasant 71-year-old gentleman with known stage 3 chronic kidney disease with a baseline serum creatinine of around 1.5-1.7, dating back to 2014. Th e patient has a known atrophic left kidney with a solitary right kidney. The patient was in his [facility] state of health until 2 or 3 weeks ago, when he began having increasing lower extremity edema, an orexia without nausea, vomiting. He would not leave the bedroom upstairs because he felt weak on hi s feet. About 1 week prior to that, he had a flare of his rheumatoid arthritis and has been taking Motrin 4 tablets daily for about 3 weeks. Over the weekend, he began having frequent bloody noses w ith significant clots. He became progressively more weak and presented to the emergency department yesterday with a hemoglobin of 5.9. The patient underwent transfusion. His hemoglobin has subseque ntly increased to about 8.7. While in the emergency department, he was noted to be hypotensive with systolic blood pressures in t he 70s and 80s. His blood pressure remained in that range for about 6 hours. He was moved to the i ntensive care unit. Intravenous pressors and IV fluids as well as blood were given. His blood pres sure now is in the low 100 range. The patient is currently sitting up in the chair. His is with him. He denies having had fever s, chills, cough, sputum, hemoptysis. He does have epistaxis. No melena, hematochezia, or abdomina l pain. He does have anorexia. He also has been having lower extremity edema for about 3 weeks wit h pruritus as well. The patient has not been having difficulties with diminished urine output, jaret s hematuria or dysuria. He has been taking ibuprofen 4 tablets a day for 2-3 weeks. PAST MEDICAL HISTORY: Significant for 1. Chronic kidney disease stage 3 with baseline serum creatinine 1.5-1.7 dating back to 2014. 2. History of acute kidney injury due to sepsis and shock about 5 or 6 years ago. He was on CRRT a nd hemodialysis for a time, but subsequently recovered his renal function. 3. Metastatic prostate cancer. 4. Atrophic left kidney. 5. Lung cancer, status post resection. 6. COPD. 7. History of hemorrhagic stroke with seizures. 8. Obstructive sleep apnea syndrome. 9. Coronary artery disease. 10. Status post coronary artery bypass grafting. 11. Rheumatoid arthritis. ALLERGIES: 1. Penicillin. 2. Clindamycin. 3. Codeine. FAMILY HISTORY: Positive for diabetes. Negative for hypertension or renal failure. SOCIAL HISTORY: He is . This is his second . He has 4 children. 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 He enjoys playing the [employer], particularly the [employer] and [employer]. He does not use tobacco, alcohol, IV or recreational drugs. Has no tattoos. REVIEW OF SYSTEMS: A complete 12-point review of systems was performed with pertinent positives and negatives as per the previous sections. PHYSICAL EXAMINATION: VITAL SIGNS: Blood pressure 105/61, pulse 89, respirations 22, temperature 3 5.3. He has had 4.1 L in and 1.3 L out. GENERAL: He is alert but is somewhat confused. He is sit ting up in the chair. His is present. HEENT pupils are reactive to light. Extraocular moveme nts are intact. Mucous membranes are somewhat dry. NECK: No lymphadenopathy or thyromegaly. HEAR T: Irregularly irregular. No rub. No S3. LUNGS: Decreased breath sounds in the bases. His insp iration effort is poor. Does have some rales in the bases as well. ABDOMEN: Obese. Bowel sounds are positive. Nontender, nondistended. EXTREMITIES: Positive for edema. No cyanosis or clubbing. NEUROLOGIC: Mild asterixis. SKIN: He has excoriations in his lower extremities. LYMPH: No pal pable lymphadenopathy or lymphedema. MUSCULOSKELETAL: No effusions or tenderness. LABORATORY: Serum sodium is 136. Potassium 3.3, down from 3.5 despite transfusions. Chloride 103, CO2 11. BUN 145, down from 160. Creatinine 2.4, down from 2.9. Glucose 132, calcium 7.9, magnesi um 1.9. Phosphorus is elevated at 11. Total bilirubin 1.5, AST is 38, alkaline phosphatase 188. T SH is low at 0.110. Urinalysis: Specific gravity of 1.011, pH 5, negative protein, negative blood. Fecal occult blood was positive. Cortisol 30. WBC 10.1, up from 7.1. Hemoglobin 8.7, improved after transfusion from 5.9. Hematocrit 25.5, up fr om 16.6. Platelet count 303,000. Renal ultrasound showed an atrophic left kidney. Right kidney 13.5 without hydronephrosis. His echocardiogram shows an ejection fraction of 40% to 45% with a right ventricular systolic pressu re of 30, inferior hypokinesis and borderline concentric left ventricular hypertrophy. His Dopplers of his lower extremities bilaterally were negative for DVT. CT scan of the abdomen showed an atrophic left kidney with increased metastatic prostate disease com pared to his CT scan of 2013. MEDICATIONS: Include: 1. Keppra 500 mg twice daily. 2. Norepinephrine. 3. Zofran. 4. Protonix 40 mg a day. 5. Normal saline 150 mL an hour. 6. Solu-Medrol 125 mg IV x1. IMPRESSION: 1. Acute kidney injury in a patient with known stage 3 chronic kidney disease. His acute injury is likely due to hypotension in the face of nonsteroidal anti-inflammatory drug use and volume depleti on. 2. Profound anemia with normal iron studies. He has apparently been having multiple large bloody n oses starting over the weekend. 3. Hemoccult-positive stool. Possibly due to gastritis or ulceration from his nonsteroidal anti-in flammatory drugs. Other possibility certainly would be due to his epistaxis. 4. Solitary functioning right kidney. Left is atrophic and nonfunctional. 5. Metabolic acidosis with a wide anion gap, likely due to his acute kidney failure. 6. Hypokalemia. 7. Hyperphosphatemia. 8. No proteinuria or hematuria on his urinalysis. RECOMMENDATIONS: 1. Continue with his IV fluids. 2. Would consider adding some sodium bicarbonate to his IV fluids as well. 3. There is no urgent or emergent dialysis needed at this time. I have counseled the patient and h is regarding dialysis. The patient has apparently been on dialysis in the past, both CRRT as w ell as intermittent hemodialysis, so they know what to expect should that need to be done. 4. Supplement potassium. 5. Continue to follow his electrolytes, volume status and renal function. 6. Wean IV pressors as we are able to maintain a decent blood pressure. 7. Gastroenterology is seeing him for possible endoscopies tomorrow. Thank you for allowing me to participate in the care of your patient. I will be following along wit h you. If there is any questions, please do not hesitate to contact us. /[id number]/MODL
[2017-03-02 04:34] LABS: ADD DIFF? YES; ADD MORPH? NO; ADD SCAN? NO; ATYPICAL LYMPHOCYTE FLAG 0 (0-99); FRAGMENT RBC FLAG 40 (0-99); HEMATOCRIT 25.4 % (40.0-51.0); HEMOGLOBIN 8.9 g/dL (13.7-17.5); LEFT SHIFT FLG 20 (0-99); LIPEMIA HEMOLYSIS FLAG 90 (0-99); MEAN CELL HEMOGLOBIN 28.4 pg (27.9-34.1); MEAN CELL VOLUME 81.2 fL (81.5-99.8); MEAN PLATELET VOLUME 10.8 fL (8.7-11.7); PLATELET CLUMPS FLAG 20 (0-99); PLATELET COUNT 346 10^3/uL (150-400); RED BLOOD CELL COUNT 3.13 10^6/uL (4.40-6.38); RED CELL DISTRIBUTION WIDTH 14.6 % (11.5-15.2)
[2017-03-02 04:37] LABS: ANION GAP 22 mEq/L (8-16); CARBON DIOXIDE 12 mEq/l (22-31); CHLORIDE 104 mEq/L (97-110); CREATININE 2.1 mg/dL (0.7-1.3); GLOMERULAR FILTRATION RATE 31; GLUCOSE 112 mg/dL (70-100); POTASSIUM 2.8 mEq/L (3.5-5.2); SODIUM 138 mEq/L (134-144)
[2017-03-02 05:22] LABS: PLATELET ESTIMATE ADEQUATE (ADEQ)
[2017-03-02 05:28] LABS: GIANT PLATELETS PRESENT; LARGE PLATELETS PRESENT; TOXIC GRANULATION PRESENT; TOXIC VACUOLIZATION PRESENT
[2017-03-02 06:40] LABS: ALBUMIN 2.9 g/dL (3.5-5.0); ANION GAP 22 mEq/L (8-16); CARBON DIOXIDE 11 mEq/l (22-31); CHLORIDE 105 mEq/L (97-110); CREATININE 2.2 mg/dL (0.7-1.3); GLOMERULAR FILTRATION RATE 30; GLUCOSE 114 mg/dL (70-100); POTASSIUM 2.9 mEq/L (3.5-5.2); SODIUM 138 mEq/L (134-144)
[2017-03-02] MEDS ORDERED: PROPOFOL 200 MG/20 ML VIAL ONE (07:32)
--- NOTE | 2017-03-02 07:32 | PDANEPAE ---
ANE History of Present Illness egd, colon ANE Past Medical History - Cardiovascular History Hx Hypertension: Yes Hx Arrhythmias: Yes Hx Chest Pain: Yes Hx Coronary Artery / Peripheral Vascular Disease: Yes Hx CHF / Valvular Disease: No Hx Palpitations: No - Pulmonary History Hx COPD: Yes Hx Oxygen in Use at Home: Yes O2 in Use at Home (L/minute): 2 Hx Sleep Apnea: Yes Sleep Apnea Screening Result - Last Documented: Positive - Endocrine History Hx Diabetes: No - Renal History Hx Renal Disorders: Yes - Liver History Hx Hepatic Disorders: Yes ANE Review of Systems - Exercise capacity METS (RN): 2 METS ANE Patient History - Allergies Allergies/Adverse Reactions: codeine [Codeine] Allergy (Severe, Verified 12/18/16 08:39) Unknown tazobactam sodium [From Zosyn] Allergy (Severe, Verified 12/18/16 08:39) piperacillin sodium [From Zosyn] Allergy (Unknown, Verified 12/18/16 08:39) clindamycin Allergy (Verified 12/25/16 09:43) pseudoephedrine HCl [From Sudafed] Allergy (Verified 12/18/16 08:39) ? triprolidine HCl [From Actifed] Allergy (Verified 12/18/16 08:39) ? - Home Medications Home Medications: Acetaminophen [Tylenol 325mg (*)] 650 mg PO Q6 PRN 02/28/17 [Last Taken Unknown] Carvedilol [Coreg (*)] 3.125 mg PO BIDMEAL 02/28/17 [Last Taken 02/28/17] Enzalutamide [Xtandi] 160 mg PO DAILY AT 9PM 02/28/17 [Last Taken 02/27/17] Furosemide [Lasix 40 MG (*)] 40 mg PO BID 02/28/17 [Last Taken 02/28/17] Ibuprofen [Motrin (*)] 200 mg PO Q4-6PRN PRN 02/28/17 [Last Taken Unknown] Levalbuterol Inhaler [Xopenex Hfa Inhaler (*)] 45 mcg IH PRN PRN 02/28/17 [Last Taken Unknown] Metolazone [Zaroxolyn 5MG (*)] 2.5 mg PO DAILY06 02/28/17 [Last Taken 02/28/17] Spironolactone [Aldactone 25 MG (*)] 25 mg PO BID 02/28/17 [Last Taken 02/28/17] levETIRAcetam [Keppra 500 mg (*)] 500 mg PO BID 02/28/17 [Last Taken 02/28/17] - NPO status NPO Since - Liquids (Date): 03/02/17 NPO Since - Liquids (Time): 00:00 NPO Since - Solids (Date): 03/01/17 NPO Since - Solids (Time): 12:00 - Smoking Hx Smoking Status: Never smoked ANE Labs/Vital Signs - Labs Result Diagrams: 03/02/17 04:10 03/02/17 04:10 - Vital Signs Blood Pressure: 93/77 Heart Rate: 90 Respiratory Rate: 18 O2 Sat (%): 97 Height: 167.6 cm Weight: 86.1 kg ANE Physical Exam - Airway Mallampati Score: Class 2 Mouth exam: normal dental/mouth exam - Pulmonary Pulmonary: respiratory distress - Cardiovascular Cardiovascular: irregularly irregular - ASA Status ASA Status: III ANE Anesthesia Plan Anesthesia Plan: general endotracheal anesthesia
[2017-03-02] MEDS ORDERED: LIDOCAINE 2% 5 ML SDV ONE (07:33)
[2017-03-02] MEDS ORDERED: fentaNYL 100 MCG/2 ML INJ ONE (07:33)
[2017-03-02] MEDS ORDERED: SUCCINYLCHOLINE CHLORIDE*ANESTHESIA ONLY*200 MG/10 ML SYR IVP ONE (07:33)
[2017-03-02] MEDS ORDERED: ROCURONIUM 50 MG/5 ML VIAL ONE (07:33)
[2017-03-02] MEDS ORDERED: MIDAZOLAM 2 MG/2 ML VIAL ONE (07:33)
[2017-03-02] MEDS ORDERED: PHENYLEPHRINE HCL 100 MCG/ML SYR ONE (07:45)
--- NOTE | 2017-03-02 08:07 | POSTOPPROG ---
Post Op Note Date of Operation: 03/02/17 Surgeon: Ty Quintanilla Anesthesiologist: Dr. Estrada Anesthesia: GET(General Endotracheal) Pre-op Diagnosis: Anemia Post-op Diagnosis: same Indication: same Procedure: egd/cln Findings: no abnormalities or blood seen. Inf/Abcess present in the surg proc area at time of surgery?: No
[2017-03-02] MEDS ORDERED: NALOXONE HCL 0.4 MG/ML INJ IVP PRN (08:24)
--- NOTE | 2017-03-02 08:24 | POSTANESTH ---
Post Anesthetic Evaluation Cardiovascular Status: Similar to Pre-Op Cond Respiratory Status: Similar to Pre-op Cond. Level of Consciousness/Mental Status: Mildly Sleepy, Arousable Pain Control: Adequate, Prn Tx Ordered Nausea/Vomiting Control: Adequate, Prn Tx Ordered Complications Possibly Related to Anesthesia: None Noted
--- NOTE | 2017-03-02 09:08 | PDINTPN ---
Manager Winter Progress Note Assessment/Plan: Assessment/plan: * GI bleed-endoscopy reported as negative * Anemia-hemoglobin hematocrit stable after transfusion of 1 unit yesterday * Metastatic prostate cancer * Obstructive sleep apnea * Lung cancer with resection * Coronary artery disease-status post CABG * Pruritus * Cardiomyopathy-recent echo shows ejection fraction is reduced and there is new wall motion abnormalities -cardiology to see * History of stroke * Seizure disorder * Disposition-given multiple serious medical problems, feel strongly that palliative care should be consulted Subjective: Sitting up. Still groggy from anesthesia. Objective: Vital Signs Temp Pulse Resp BP Pulse Ox 34.8 C L 93 16 100/54 L 92 03/02/17 08:47 03/02/17 08:47 03/02/17 08:47 03/02/17 08:47 03/02/17 08:47 Laboratory Results 03/02/17 04:10 03/02/17 04:10 03/01/17 03/02/17 03/03/17 05:59 05:59 05:59 Intake Total 4065 7292 Output Total 1285 895 Balance 2780 6397 PT 22.2 SEC (12.0-15.0) H 03/01/17 05:45 INR 1.93 (0.83-1.16) H 03/01/17 05:45 Physical Exam - Physical Exam General Appearance: No alert EENT: PERRL/EOMI, normal ENT inspection Neck: non-tender, full range of motion, supple, normal inspection Respiratory: crackles (Few), prolonged expiration, No wheezing Cardiac/Chest: normal peripheral pulses, regular rate, rhythm, systolic murmur Abdomen: normal bowel sounds, non-tender, soft Male Genitalia: deferred Rectal: deferred Skin: normal color, warm/dry Extremities: normal range of motion, non-tender, normal inspection, normal capillary refill ICD10 Worksheet Patient Problems: Problems Problem Status Onset Acute renal failure Acute Anemia Acute Atrial fibrillation Acute Hypotension Acute Aspiration pneumonia Active Coronary artery bypass grafting Active MRSA - Methicillin resistant Staphylococcus aureus infection Active Non-small cell lung cancer Active Respiratory failure Active
--- NOTE | 2017-03-02 09:39 | SOAPPROG ---
SOAP Progress Note Assessment/Plan: Assessment: 1. BRISEIDA on CKD Very high BUN/Cr ratio. Non oliguric, but I>>O, and he remains very acidemic. I am reluctant to give additional sodium bicarbonate at present given volume status. At this point, if the patient and family wish to pursue aggressive care, I would recommend dialysis to correct his acidosis and volume issues. However, I agree that comfort measures may be most appropriate. The family and patient at the moment are not really able to engage in this conversation. I reviewed with Dr. Ventura. He will address prognosis and plan with them later. If they wish to continue aggressive care, he would need line placement and dialysis. 2. Anemia This has stabilized. Question if this is epistaxis or UGI bleed related. EGD apparently negative. 3. Acidosis As above. 4. Metastatic Prostate Ca This needs to be entered into the calculus of his care plan. Plan: 03/02/17 09:35 Subjective: Agitated at present, Objective: Vital Signs Temp Pulse Resp BP Pulse Ox 34.8 C L 93 16 100/54 L 92 03/02/17 08:47 03/02/17 08:47 03/02/17 08:47 03/02/17 08:47 03/02/17 08:47 Laboratory Results 03/02/17 04:10 03/02/17 04:10 03/01/17 03/02/17 03/03/17 05:59 05:59 05:59 Intake Total 4065 7292 Output Total 1285 895 Balance 2780 6397 PT 22.2 SEC (12.0-15.0) H 03/01/17 05:45 INR 1.93 (0.83-1.16) H 03/01/17 05:45 Physical Exam - Physical Exam General Appearance: mild distress Respiratory: decreased breath sounds Cardiac/Chest: regular rate, rhythm Abdomen: soft Extremities: pedal edema Neuro/Psych: other (agitated, restless, uncomfortable) ICD10 Worksheet Patient Problems: Problems Problem Status Onset Acute renal failure Acute Anemia Acute Atrial fibrillation Acute Hypotension Acute Aspiration pneumonia Active Coronary artery bypass grafting Active MRSA - Methicillin resistant Staphylococcus aureus infection Active Non-small cell lung cancer Active Respiratory failure Active
[2017-03-02] MEDS ORDERED: PROTOCOL POTASSIUM 1 DOSE MISC PRN (10:05)
[2017-03-02] MEDS: POTASSIUM Cl (KCl) 50 ML IV SCH ×2 (10:26→12:00)
[2017-03-02] MEDS: levETIRAcetam 500 MG TAB PO SCH (10:27)
[2017-03-02] MEDS ORDERED: FUROSEMIDE 20 MG/2 ML VIAL IV ONE (10:30)
[2017-03-02 11:22] VITALS: RESP 19
--- NOTE | 2017-03-02 11:55 | GPN ---
[f rep st] PROCEDURE NOTE PROCEDURES PERFORMED: Gastroscopy and colonoscopy. INDICATIONS: The patient is a 71-year-old male admitted with multiple medical problems, including a significant drop in his hemoglobin. His stools are heme positive. He did have some epistaxis. Th ere is no complaint of recent melena or hematochezia. Patient has never had colon cancer screening. Panendoscopy is requested to rule out a GI source for anemia. DESCRIPTION OF PROCEDURE: After proper consent was obtained, patient was placed under general endot clau anesthesia given his ASA class of 4. The patient was put in the left lower decubitus position. Video gastroscope was introduced through the mouth, down the esophagus into the stomach past the pylorus and into the duodenal. Findings as follows: Normal upper GI exam with no evidence of any peptic injuries, bleeding or othe r abnormalities. At this point, the instrument was removed. The patient was repositioned and video colonoscope was i ntroduced through the anus and rectum, up the left colon, across the transverse colon, then the righ t colon and cecum. Findings as follows: 1. Prep was excellent. 2. No polyps, tumors, lesions or bleeding sites were noted. 3. No presence of any bloody material in the gut, indeed any fluid is clear or white and yellow in color. At this point, instrument was removed. Patient tolerated the procedure well. Was returned to ICU i n stable condition. IMPRESSION: Strongly doubt patient has any significant gastrointestinal process to explain his sign ificant drop and anemia. If there is any further documentation of gastrointestinal bleeding, then a capsule endoscopy of the small bowel could be contemplated. /[id number]/MODL
[2017-03-02 12:22] LABS: ANTINUCLEAR ANTIBODIES SCREEN 0.58 UNITS (<=1.00)
[2017-03-02 12:25] LABS: DSDNA IF INDICATED NOT INDICATED (NOT IND)
[2017-03-02 15:11] VITALS: BP 89/54; PULSE 84; TEMP 94.3; O2SAT 92
--- NOTE | 2017-03-02 15:11 | PDINTPN ---
[facility] Progress Note Assessment/Plan: Assessment/plan: * GI bleed-endoscopy reported as negative * Anemia-hemoglobin hematocrit stable after transfusion of 1 unit yesterday * Metastatic prostate cancer * Obstructive sleep apnea * Lung cancer with resection * Coronary artery disease-status post CABG * Pruritus * Cardiomyopathy-recent echo shows ejection fraction is reduced and there is new wall motion abnormalities -cardiology to see * History of stroke * Seizure disorder I had a long discussion with the patient's family. Given his multiple medical problems, and worsening physical condition, as well extremely poor prognosis, it is their wish that all support be withdrawn and patient be made comfortable. We will abide by their wishes. Plan: Comfort care only. Patient is do not resuscitate. Objective: Vital Signs Temp Pulse Resp BP Pulse Ox 34.4 C L 87 19 98/71 L 97 03/02/17 13:00 03/02/17 13:00 03/02/17 13:00 03/02/17 13:00 03/02/17 13:00 Laboratory Results 03/02/17 04:10 03/02/17 04:10 03/01/17 03/02/17 03/03/17 05:59 05:59 05:59 Intake Total 4065 7292 Output Total 1285 895 Balance 3553 2120 PT 22.2 SEC (12.0-15.0) H 03/01/17 05:45 INR 1.93 (0.83-1.16) H 03/01/17 05:45 ICD10 Worksheet Patient Problems: Problems Problem Status Onset Acute renal failure Acute Anemia Acute Atrial fibrillation Acute Hypotension Acute Aspiration pneumonia Active Coronary artery bypass grafting Active MRSA - Methicillin resistant Staphylococcus aureus infection Active Non-small cell lung cancer Active Respiratory failure Active
[2017-03-02] MEDS ORDERED: SCOPOLAMINE HYDROBROMIDE 1 MG/3 DAYS PATCH TD PRN (15:13)
[2017-03-02] MEDS: LORazepam 2 MG/ML INJ IVP PRN (15:41)
--- NOTE | 2017-03-02 15:58 | PDPCPN ---
Palliative Care Progress Note Assessment/Plan: Referring provider: Dr Ventura Reason for consult: Complex medical decision making Symptom control HPI: Jose Kelly is a 71 yo male with PMH met prostate CA, CAD, HTN, CKD, CVA with residual seizures admitted to the hospital from [facility] with anemia, weakness, and possible GI bleed. S/p colonoscopy with no source of bleeding identified. Hospitalization complicated by acute on chronic kidney failures from hypovolemic shock. Palliative care consulted for complex medical decision making. Met with nIdia outside of the room this morning. She shared that Jose has been ill since he was 51 and has been slowly declining since then. Most significant decline the last few years. She states he does not want to but with getting weaker his quality of life has been declining. He enjoys volunteering especially with children. She understands his multiple medical problems and wants just comfort for him knowing he will not recover. She would like him to be able to understand where he is and have input but at times he is SOB and cannot have a detailed discussion. We spoke about hospice care and that his prognosis is likely days. Assessment: Physical: - Pain: general body pain - roxanol 5-10mg PO Q2hr PRN - Dyspnea: - oxygen as needed - fan can help - roxanol 5-10 mg pO Q2hr PRN - poor appetite: 2/2 medications - general diet as able - constipation - dulcolax supp PRN Emotional/psychological: Some confusion per : monitor Advanced Care Planning: Is patient decisional?: no Code Status: DNR POA: [place] is MDPOA. Plan: Has chosen comfort care only. Subjective: ok Objective: Social History: to [place]. 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 A [email or web address] and enjoys helping children and young adults succeed. Medication list reviewed ROS: General: fatigue, weakness ENT: negative Resp: dyspnea GI: poor appetite : negative MS: bone pain Skin: negative Neuro: negative Psych: some confusion Functional assessment: PPS: 30% Functional status: dependent on ADLs, IADLs Vital Signs Temp Pulse Resp BP Pulse Ox 34.6 C L 84 19 89/54 L 92 03/02/17 14:00 03/02/17 14:00 03/02/17 14:00 03/02/17 14:00 03/02/17 14:00 Laboratory Results 03/02/17 04:10 03/02/17 04:10 03/01/17 03/02/17 03/03/17 05:59 05:59 05:59 Intake Total 4065 7263 Output Total 0200 895 Balance 2782 6357 PT 22.2 SEC (12.0-15.0) H 03/01/17 05:45 INR 1.93 (0.83-1.16) H 03/01/17 05:45 Physical Exam - Physical Exam General Appearance: alert, mild distress Respiratory: respiratory distress (mild), No accessory muscle use Skin: normal color, warm/dry Extremities: pedal edema Neuro/Psych: alert, disoriented to time ICD10 Worksheet Patient Problems: Problems Problem Status Onset Acute renal failure Acute Anemia Acute Atrial fibrillation Acute Hypotension Acute Palliative care encounter Acute Aspiration pneumonia Active Coronary artery bypass grafting Active MRSA - Methicillin resistant Staphylococcus aureus infection Active Non-small cell lung cancer Active Respiratory failure Active - ICD10 Problem Qualifiers (1) Palliative care encounter
--- NOTE | 2017-03-02 17:00 | HOSPPROG ---
Hospitalist Progress Note Assessment/Plan: assessment: 71-year-old male presents with acute fatigue and pruritus in the setting of hypovolemic shock and acute anemia and acute kidney injury on chronic kidney disease Plan: 1. anemia. Acute, unclear etiology, colonoscopy and EGD w/o identifiable lesion , albeit BUN indicative of upper GI source - no further w/u given goals of care 2. acute kidney injury on chronic kidney disease stage 3. patient with functional solitary kidney, atrophic on 1 side, minimal response to bicarb - patient would be nearing possible RN LACTATION, but goals of care are now comfort 3. hypovolemic shock. transitioning to comfort care 4. hypokalemia. no further replacement 5. metabolic acidosis. Anion gap, most likely secondary to uremia, no significant response to bicarb 6. Uremia. Most likely contributing to patient's pruritus symptoms, secondary to his acute kidney injury, supportive care - likely contributing to his somnolence 7. Acute on Chronic systolic and diastolic congestive heart failure. acute worsening of EF, becoming edematous, oxygen requirements increasing, received lasix - no further intervention given goals of care 8. lipoma. Left flank, present on abdominal imaging, although it has been rapidly growing, suspect this is not related to the above 9. Prostate cancer. Chronic, patient with sclerotic bone lesions resulting in pain - no further chemo given goals 10. atrial fibrillation. New onset, no rapid ventricular response, most likely provoked in the setting of above and underlying coronary artery disease - no intervention given goals 11. Coronary artery disease. Chronic, status post CABG 20-30 years ago, holding patient's beta-marleen, patient not on aspirin for unclear reasons 12. acute encephalopathy. evidenced by global brain dysfunction characterized as somnolence, all of which is an acute change, 2/2 metabolic effects of uremia and toxic effects of opiates used for supportive, comfort care - patient appears comfortable Diet. Comfort Prophylaxis. High risk patient, none for comfort Code. DNR, comfort measures Disposition. Anticipate expiration within 24hrs Greater than 15 minute spent with the patient and his , greater than 50% time spent counseling regarding the issues above, coordinating care. Subjective: Counseled on supportive regarding end of life care, coordinated with Dr. Ventura, patient is resting comfortably status post p.r.n. morphine Objective: Vital Signs Temp Pulse Resp BP Pulse Ox 34.6 C L 84 19 89/54 L 92 08/31/17 14:00 03/02/17 14:00 03/02/17 14:00 03/02/17 14:00 03/02/17 14:00 Laboratory Results 03/02/17 04:10 03/02/17 04:10 03/01/17 03/02/17 03/03/17 05:59 05:59 05:59 Intake Total 4065 7292 Output Total 1285 895 Balance 2780 6364 PT 22.2 SEC (12.0-15.0) H 03/01/17 05:45 INR 1.93 (0.83-1.16) H 03/01/17 05:45 - Physical Exam Constitutional: not in pain, chronically ill appearing, other ( appears to be resting comfortably) Neurologic: other (unarousable) Psychiatric: encephalopathic ICD10 Worksheet Patient Problems: Problems Problem Status Onset Coronary artery bypass grafting Active Non-small cell lung cancer Active Respiratory failure Active Aspiration pneumonia Active MRSA - Methicillin resistant Staphylococcus aureus infection Active Hypotension Acute Atrial fibrillation Acute Anemia Acute Acute renal failure Acute Palliative care encounter Acute
--- NOTE | 2017-03-02 22:27 | PDCARPN ---
Cardiology Progress Note Chief Complaint: shortness of breath Assessment/Plan: Assessment: Ischemic cardiomyopathy with reduced ejection fraction and segmental wall motion abnormality. To repair this would require a significant amount of contrast which would almost certainly result in permanent kidney injury and a requirement for lifelong dialysis. Given the change of status of care and desire for comfort measures, I will sign off. Please reconsult as needed. Plan:As above. 03/02/17 22:23 Objective: Intake/Output (24 Hrs) 03/01/17 03/02/17 03/03/17 05:59 05:59 05:59 Intake Total 4065 7292 Output Total 1285 895 Balance 2780 6397 Intake: Oral (ml) 2600 IV Intake (ml) 1800 IV Infused (ml) 4065 2892 Norepinephrine/Ns 500 ml 367 1442 @ Titrate IV CONT NICK Rx# :[id number] Ns 1,000 ml @ 150 mls/hr 2698 IV CONT NICK Rx#: [id number] Sodium Bicarbonate 75 meq 1450 In 1/2 Ns 1,000 ml @ 125 mls/hr IV CONT NICK Rx#: [id number] Output: Urine (ml) 1285 895 Catheter 1285 895 Other: Weight 86.1 kg 86.1 kg Number of Stools Catheter 2 Result Diagrams: 03/02/17 04:10 03/02/17 04:10 Cardiac Labs: Cardiac Lab Results (72 Hrs) 03/01/17 03/01/17 05:45 00:35 Troponin I 0.994 H 0.853 H ICD10 Worksheet Patient Problems: Problems Problem Status Onset Acute renal failure Acute Anemia Acute Atrial fibrillation Acute Hypotension Acute Palliative care encounter Acute Aspiration pneumonia Active Coronary artery bypass grafting Active MRSA - Methicillin resistant Staphylococcus aureus infection Active Non-small cell lung cancer Active Respiratory failure Active
[2017-03-03] MEDS: LORazepam 2 MG/ML INJ IVP PRN (00:44)
--- NOTE | 2017-03-04 18:24 | PDDCSUM ---
Discharge Summary Discharge Summary: DISCHARGE SUMMARY Date of expiration 03/03/2017 Time of expiration 8:11 p.m. eleven a.m. DATE OF ADMISSION: 02/28/2017 DATE OF DISCHARGE: 03/03/2017 DISCHARGE DIAGNOSES/cause of : 1. Acute uremia 2. Acute kidney injury on chronic kidney disease stage 3 3. Acute metabolic acidosis 4. Acute on chronic systolic and diastolic congestive heart failure exacerbation 5. Acute anemia 6. New onset atrial fibrillation 7. Acute encephalopathy 8. Chronic coronary artery disease and worsening cardiomyopathy 9. Acute hypovolemic shock CONSULTATIONS: Cardiology, Gastroenterology, Pulmonary Critical Care, Nephrology, Oncology PROCEDURES / IMAGING: Upper endoscopy and colonoscopy demonstrating no source of bleeding CHIEF COMPLAINT: Have anemic lethargic HOSPITAL COURSE BY PROBLEM: Patient presented with lethargy in the setting of anemia of unclear etiology. He underwent upper endoscopy as well as colonoscopy and there was no identifiable source of bleeding found. The patient was experiencing uremic symptoms in the setting of acute kidney injury on chronic kidney disease, he became more lethargic and experienced resultant somnolence. Patient had been suffering from chronic prostate cancer with sclerotic bone lesions, and he was seen in consultation by Oncology as well as Pulmonary Critical Care. Given the patient's numerous medical problems as well as poor response to intervention for his uremia, the patient's family decided to pursue comfort measures. The patient became more encephalopathic as his uremia worsened, and the patient comfortably at 2:11 a.m. on 03/03. Please cc hospitalist progress note from 03/02/2017 for full validation of all of the contributing diagnoses. Our condolences go out to the family of the patient and his family.
[2017-03-07 09:34] LABS: PEUR A/G RATIO 0.54 %; PEUR ALBUMIN 35 %; PEUR ALPHA 1-GLOBULIN 16 %; PEUR ALPHA 2-GLOBULIN 22 %; PEUR BETA-GLOBULIN 14 %; PEUR GAMMA-GLOBULIN 14 %; PEUR IMPRESSION See Comments
== END 2017-03-03 02:08 | disposition expired | DRG 811 ==
LOC: F2N 18:27
PROVIDERS: ADMIT Internal Medicine; ATTEND Internal Medicine
DX: D64.9 Anemia, unspecified (principal); N17.9 Acute kidney failure, unspecified; N18.3 Chronic kidney disease, stage 3 (moderate); R57.1 Hypovolemic shock; I50.43 Acute on chronic combined systolic (congestive) and diastolic (congestive) heart failure; I48.91 Unspecified atrial fibrillation; E87.6 Hypokalemia; E83.39 Other disorders of phosphorus metabolism; G93.40 Encephalopathy, unspecified; T80.92XA Unspecified transfusion reaction, initial encounter; D17.1 Benign lipomatous neoplasm of skin and subcutaneous tissue of trunk; M06.9 Rheumatoid arthritis, unspecified; J44.9 Chronic obstructive pulmonary disease, unspecified; G47.33 Obstructive sleep apnea (adult) (pediatric); I25.10 Atherosclerotic heart disease of native coronary artery without angina pectoris; G40.909 Epilepsy, unspecified, not intractable, without status epilepticus; C79.51 Secondary malignant neoplasm of bone; Z85.46 Personal history of malignant neoplasm of prostate; Z95.1 Presence of aortocoronary bypass graft; Z86.73 Personal history of transient ischemic attack (TIA), and cerebral infarction without residual deficits; Z87.891 Personal history of nicotine dependence; Z85.118 Personal history of other malignant neoplasm of bronchus and lung; Z90.5 Acquired absence of kidney; Z51.5 Encounter for palliative care; Z66 Do not resuscitate
CPT/HCPCS: 83010-90; 84166-90; 86704-90; 97162-GP; 97166-GO; 97530-GP; G0472; G8978-GP-CJ; G8979-GP-CI; G8987-GO-CK; G8988-GO-CI; J0330; J1940; J2060; J2250; J2370; J2704; J3010; P9016